=== PATIENT | female | born 1930 | race Caucasian/White ===

== ENCOUNTER → 2017-07-15 | Outpatient (CLI) | payer OTHER | LOC: FIMAGING 14:50 | PROVIDERS: ATTEND Nurse Practitioner Adult Health | DX: R10.9 Unspecified abdominal pain (principal) ==

== ENCOUNTER → 2017-08-22 | Outpatient (CLI) | payer OTHER | LOC: BMCIMAGING 13:27 | PROVIDERS: ATTEND Family Medicine | DX: R05 Cough (principal) ==

== ENCOUNTER → 2017-09-02 | Outpatient (CLI) | payer OTHER | LOC: BMCIMAGING 14:05 | PROVIDERS: ATTEND Internal Medicine | DX: R50.9 Fever, unspecified (principal); J84.10 Pulmonary fibrosis, unspecified; R91.8 Other nonspecific abnormal finding of lung field ==

== ENCOUNTER 2017-09-05 18:23 | Inpatient (IN) | payer OTHER ==
--- NOTE | 2017-09-05 18:47 | EDPHY ---
H & P Time Seen by Provider: 09/05/17 18:28 HPI/ROS: CHIEF COMPLAINT: Chills, fever, weakness HISTORY OF PRESENT ILLNESS: 86 year old female with history of pulmonary fibrosis presents with cough, weakness, and chills. Onset of fatigue, chills, and nausea 2 weeks ago, followed by a productive cough. Associated with shortness of breath with exertion, reduced appetite, and decreased fluid intake. She saw her primary care physician, Dr. Guzman. Flu swab was negative. Chest x-ray 09/02/17 showed possible right lower lobe pneumonia. Rx for Levaquin, and has taken three doses. Today, she presents due to extreme fatigue and weakness and out of concern that she feels she is getting worse rather than better. She has not noted a measured fever, but has felt febrile. She has not been able to sleep well due to cough. She denies chest pain, abdominal pain, vomiting, diarrhea, urinary complaints, or other associated symptoms. REVIEW OF SYSTEMS: A 10 point review of systems was performed and is negative with the exception of the elements mentioned in the history of present illness. Past Medical/Surgical History: Pulmonary fibrosis Hypertension Hyperlipidemia Colitis Social History: , at bedside. Lives in [place]. Retired. Former smoker. Smoking Status: Former smoker Physical Exam: General Appearance: Alert, pleasant, nontoxic appearing Eyes: Pupils equal and round, no conjunctival pallor or injection ENT, Mouth: Mucous membranes moist Neck: Normal inspection Respiratory: scattered right sided rales Cardiovascular: Regular rate and rhythm Gastrointestinal: Abdomen is soft and non-tender Neurological: A&O, nonfocal exam Skin: Warm and dry Extremities: normal inspection Psychiatric: Mood and affect normal Constitutional: Initial Vital Signs Temperature (C) 36.6 C 09/05/17 18:25 Heart Rate 85 09/05/17 18:25 Respiratory Rate 18 09/05/17 18:25 Blood Pressure 98/71 L 09/05/17 18:25 O2 Sat (%) 94 09/05/17 18:25 O2 Delivery Mode Room Air Allergies/Adverse Reactions: narcotic pain meds Allergy (Mild, Uncoded 09/05/17 18:37) GI upset, cloudy head Home Medications: Medication Instructions Recorded Hydrochlorothiazide [HCTZ (*)] 25 mg PO DAILY 12/09/13 Losartan Potassium [Cozaar 50 mg 50 mg PO BID 12/09/13 (*)] Aspirin [Aspirin 325 mg (*)] 325 mg PO DAILY 03/09/14 Nebivolol HCl [Bystolic] 2.5 mg PO HS 03/09/14 C/E/Zn/Cu/OM3/DHA/EPA/LUT/ZEAX 1 each PO DAILY 09/05/17 [Preservision Areds 2 Softgel] Herbals/Supplements -Info Only 1 ea PO DAILY 09/05/17 Oxymetazoline HCl [Afrin Nasal 1 spray EACHNARE BID PRN 09/05/17 [place] (OTC)] levOFLOXACIN [levAQUIN (*)] 500 mg PO DAILY 09/05/17 Medical Decision Making - Diagnostics Imaging Results: Chest X-Ray 09/05/17 18:47 Impression: 1. Improving small right pleural effusion 2. Stable interstitial lung disease since August 22, new since February 2008. This could potentially represent evidence of viral pneumonitis rather than chronic interstitial lung disease. Imaging: I viewed and interpreted images myself ED Course/Re-evaluation: 86 y/o female presents with 2.5 week history of fatigue, chills, and cough. Occasional right expiratory rales on exam. Chest x-ray ordered by Dr. Guzman 09/02 showed possible right lower lobe pneumonia. labs: hyponatremia present. Plan for repeat chest x-ray, labs including CBC, chemistries, lactic acid, respiratory path PCR. Does not meet SIRS criteria. Discussed admission for further management of symptoms as she feels too weak to go home. CXR reviewed: no definite pneumonia. Bld cx's drawn, pt already took Levaquin in past 24hrs, will hold further abx for now. Sx c/w influenza, prior testing negative, resp PCR pending. Hyponatremia noted, IVF given for dehydration, hyponatremia/dehydration likely reason for weakness. 20:[address] Wall, hospitalist. Will admit medsurg. Differential Diagnosis: Differential diagnosis includes though not limited to hyponatremia, hypoglycemia , dehydration, influenza, pneumonia, pulm edema, empyema. - Data Points Laboratory Results: Laboratory Results 09/05/17 19:15 09/05/17 19:15 Microbiology Results: MICROBIOLOGY 09/05/17 19:40 Nasal, Sinus - Swab Respiratory Panel (PCR) - Final Respiratory Syncytial Virus Medications Given: Benzonatate (Tessalon Pearles) 100 mg PO TID PRN PRN Reason: Cough, Mild Stop: 03/04/18 21:54 Last Admin: 09/05/17 23:56 Dose: 100 mg Enoxaparin Sodium (Lovenox) 40 mg SC DAILY IRIS Stop: 03/05/18 08:59 Last Admin: 09/06/17 09:15 Dose: 40 mg Fluticasone Propionate (Flonase Nasal [place]) 2 sprays EACHNARE DAILY IRIS Stop: 03/04/18 21:59 Last Admin: 09/06/17 09:18 Dose: 2 spray Guaifenesin (Mucinex) 1,200 mg PO BID IRIS Stop: 03/05/18 08:59 Last Admin: 09/06/17 09:15 Dose: 1,200 mg Discontinued Medications Sodium Chloride (Ns) 1,000 mls @ 0 mls/hr IV ONCE ONE; Wide Open PRN Reason: Protocol Stop: 09/05/17 19:12 Last Admin: 09/05/17 19:32 Dose: 1,000 mls Dextrose (D5w) 250 mls @ 250 mls/hr IV ONCE ONE PRN Reason: Protocol Stop: 09/05/17 23:38 Last Admin: 09/05/17 23:57 Dose: 250 mls Dextrose (D5w) 250 mls @ 250 mls/hr IV ONCE ONE Stop: 09/06/17 04:14 Last Admin: 09/06/17 03:36 Dose: 250 mls Departure - Departure Disposition: [facility] Inpatient Acute Clinical Impression: Pneumonitis, Hyponatremia Condition: Fair Report Scribed for: Eve Corcoran Report Scribed by: Lesly Gill Date of Report: 09/05/17 Time of Report: 18:46 Physician Review and Approval Statement: 09/05/17 18:46 Portions of this note were transcribed by a medical typist. I personally performed a history, physical exam, medical decision making, and confirmed accuracy of information the transcribed note.
[2017-09-05] MEDS ORDERED: NS 1,000 ML IV ONE (19:11)
[2017-09-05 19:28] LABS: PLATELET COUNT 268 10^3/uL (150-400)
[2017-09-05] MEDS ORDERED: ONDANSETRON 4 MG/2 ML VIAL IVP PRN (21:47)
[2017-09-05] MEDS ORDERED: ACETAMINOPHEN 325 MG TAB PO PRN (21:47)
[2017-09-05] MEDS ORDERED: ONDANSETRON DISINTEGRATING 4 MG TAB PO PRN (21:47)
--- NOTE | 2017-09-05 22:16 | PDGENHP ---
History and Physical - Chief Complaint weakness, chills - History of Present Illness 86 yo female presents to ED with 2 1/2 weeks of weakness, fatigue, nausea and recurrent chills. Subjective fevers have improved, but she continues to have marked chills and rigors. She was treated for possible pneumonia and sinusitis with Levaquin, started 3 days ago. She continues to have a wet cough. She had a negative flu test 2 weeks ago at her PCP office. She reports decreased oral intake. Over the past few days, she has become so weak that she feels unsteady on her feet. She denies CP, SOB, abdominal pain, N/V or diarrhea. In the ED, her serum sodium was 122. She received 1 L NS in the ED and is admitted for further management. History Information - Allergies/Home Medication List Allergies/Adverse Reactions: narcotic pain meds Allergy (Mild, Uncoded 09/05/17 18:37) GI upset, cloudy head Home Medications: Hydrochlorothiazide [HCTZ (*)] 25 mg PO DAILY 12/09/13 [Last Taken 09/05/17] Losartan Potassium [Cozaar 50 mg (*)] 50 mg PO BID 12/09/13 [Last Taken 20:00] Aspirin [Aspirin 325 mg (*)] 325 mg PO DAILY 03/09/14 [Last Taken 09/05/17] Nebivolol HCl [Bystolic] 2.5 mg PO HS 03/09/14 [Last Taken 09/05/17] C/E/Zn/Cu/OM3/DHA/EPA/LUT/ZEAX [Preservision Areds 2 Softgel] 1 each PO DAILY [Last Taken 09/05/17] Herbals/Supplements -Info Only 1 ea PO DAILY 09/05/17 [Last Taken Unknown] Oxymetazoline HCl [Afrin Nasal [place] (OTC)] 1 spray EACHNARE BID PRN 09/05/17 [ Last Taken Unknown] levOFLOXACIN [levAQUIN (*)] 500 mg PO DAILY 09/05/17 [Last Taken 09/05/17 3/7] I have personally reviewed and updated: family history, medical history, social history, surgical history - Past Medical History hypertension, hyperlipidemia Additional medical history: h/o colitis. pulmonary fibrosis - Surgical History Reports: no pertinent surgical hx - Family History Positive for: non-pertinent - Social History Smoking Status: Former smoker Alcohol Use: None Drug Use: None Additional social history: , lives independently with Review of Systems Review of Systems: ROS: 10pt was reviewed & negative except for what was stated in HPI & below Physical Exam Physical Exam: Temp Pulse Resp BP Pulse Ox 36.6 C 78 18 127/82 H 93 09/05/17 18:25 09/05/17 20:27 09/05/17 20:27 09/05/17 20:27 09/05/17 20:27 Constitutional: no apparent distress Eyes: PERRL Ears, Nose, Mouth, Throat: moist mucous membranes Cardiovascular: regular rate and rhythym, no murmur, rub, or gallop Respiratory: no respiratory distress, clear to auscultation Gastrointestinal: normoactive bowel sounds, soft, non-tender abdomen Skin: warm Musculoskeletal: full muscle strength Neurologic: AAOx3 Psychiatric: interacting appropriately Lab Data & Imaging Review 09/05/17 19:15 09/05/17 21:30 WBC 8.46 10^3/uL (3.80-9.50) 09/05/17 19:15 RBC 4.69 10^6/uL (4.18-5.33) 09/05/17 19:15 Hgb 13.8 g/dL (12.6-16.3) 09/05/17 19:15 Hct 38.9 % (38.0-47.0) 09/05/17 19:15 MCV 82.9 fL (81.5-99.8) 09/05/17 19:15 MCH 29.4 pg (27.9-34.1) 09/05/17 19:15 MCHC 35.5 g/dL (32.4-36.7) 09/05/17 19:15 RDW 13.8 % (11.5-15.2) 09/05/17 19:15 Plt Count 268 10^3/uL (150-400) 09/05/17 19:15 MPV 8.5 fL (8.7-11.7) L 09/05/17 19:15 Neut % (Auto) 71.6 % (39.3-74.2) 09/05/17 19:15 Lymph % (Auto) 11.5 % (15.0-45.0) L 09/05/17 19:15 [place] % (Auto) 10.8 % (4.5-13.0) 09/05/17 19:15 Eos % (Auto) 4.0 % (0.6-7.6) 09/05/17 19:15 Baso % (Auto) 1.3 % (0.3-1.7) 09/05/17 19:15 Nucleat RBC Rel Count 0.0 % (0.0-0.2) 09/05/17 19:15 Absolute Neuts (auto) 6.06 10^3/uL (1.70-6.50) 09/05/17 19:15 Absolute Lymphs (auto) 0.97 10^3/uL (1.00-3.00) L 09/05/17 19:15 Absolute Monos (auto) 0.91 10^3/uL (0.30-0.80) H 09/05/17 19:15 Absolute Eos (auto) 0.34 10^3/uL (0.03-0.40) 09/05/17 19:15 Absolute Basos (auto) 0.11 10^3/uL (0.02-0.10) H 09/05/17 19:15 Absolute Nucleated RBC 0.00 10^3/uL (0-0.01) 09/05/17 19:15 Immature Gran % 0.8 % (0.0-1.1) 09/05/17 19:15 Immature Gran # 0.07 10^3/uL (0.00-0.10) 09/05/17 19:15 VBG Lactic Acid 1.2 mmol/L (0.7-2.1) 09/05/17 19:15 Sodium REJ 09/05/17 20:30 Potassium 3.6 mEq/L (3.5-5.2) 09/05/17 19:15 Chloride 90 mEq/L (97-110) L 09/05/17 19:15 Carbon Dioxide 20 mEq/l (22-31) L 09/05/17 19:15 Anion Gap 12 mEq/L (8-16) 09/05/17 19:15 BUN 10 mg/dL (7-23) 09/05/17 19:15 Creatinine 0.7 mg/dL (0.6-1.0) 09/05/17 19:15 Estimated GFR > 60 09/05/17 19:15 Glucose 96 mg/dL (70-100) 09/05/17 19:15 Calcium 8.3 mg/dL (8.5-10.4) L 09/05/17 19:15 Procalcitonin 0.08 ng/mL (0.02-0.10) 09/05/17 20:30 Visualized and Interpreted Chest x-ray results: Yes Chest X-Ray results: other (diffuse hazy interstitial markings) Assessment & Plan Assessment: Weakness and chills - query viral etiology, respiratory pathogen panel pending. BCx's pending. Hyponatremia likely playing some role in weakness. PCT negative so doubt bacterial infection. Will stop atbx and observe. PT/OT evals requested. Hyponatremia - suspect hypovolemic hyponatremia. S/P 1 L NS in ED. Recheck Na now- 125 from 122. Correcting a bit too rapidly after NS bolus in ED. Will give 250 cc's D5W now and follow q4h Na. Send urine Na and osm for further evaluation. Hold HCTZ. Hypertension - on 3 agents at home though SBP 90's on arrival and appears volume depleted. Hold anti-hypertensives for now, resume as clinically indicated and when med rec completed. Full code Dispo - inpt, anticipate >48 hrs hospitalization for ongoing management of hyponatremia and associated weakness.
[2017-09-05] MEDS ORDERED: D5W 250 ML IV ONE (22:39)
[2017-09-05] MEDS: BENZONATATE 100 MG CAP PO PRN (23:56)
[2017-09-06] MEDS: FLUTICASONE NASAL 120 SPRAYS/16 GM MDI EACHNARE SCH ×2 (01:08→09:18)
--- NOTE | 2017-09-06 02:50 | PDMN ---
Medical Necessity Medical necessity: C/M review: est. > 2 MN LOS for eval and TX of acute and persistent hyponatremia, generalized weakness, chills, query viral etiology requiring IV fluids in ED, ongoing pulse oximetry, supplemental O2, acute inpt PT/OT, comorbid hypertension, hyperlipidemia, history of colitis, pulmonary fibrosis per H/P.
[2017-09-06] MEDS ORDERED: ALBUTEROL 60 PUFFS/8 GM MDI IH PRN (02:57)
[2017-09-06] MEDS ORDERED: D5W 250 ML IV ONE (03:15)
[2017-09-06] MEDS: guaiFENesin 600 MG TAB.ER PO SCH ×2 (09:15→21:12)
[2017-09-06] MEDS: ENOXAPARIN 40 MG/0.4 ML SYR SC SCH (09:15)
[2017-09-06] MEDS ORDERED: OXYMETAZOLINE 30 ML NASAL SPRAY EACHNARE PRN (15:13)
[2017-09-06] MEDS ORDERED: methylPREDNISolone SOD SUCC 125 MG/2 ML VIAL IVP ONE (15:14)
--- NOTE | 2017-09-06 15:20 | HOSPPROG ---
Hospitalist Progress Note Assessment/Plan: First encounter #RSV viral bronchitis -start steroids -cont nebs -Dain Hernández #acute resp failure due to RSV viral bronchitis #Hyponatremia due to volume depletion, Camilo with appropriate Na retention -improving s/p 1 liter NS in the E.D. -further hydration via IVF is limited by increasing Na in setting of hyponatremia -cont to encourage po, she is no longer having difficulty with this -Na has incrased from 122 - 129 and has stayed at 129. Repeat Na this afternoon. Pending Na, may need additional intervention #Nausea, improving #HTN, restart BB. Hold other BP meds #Weakness and Deconditioning -PT/OT #Lovenox for DVT proph Dispo: continue inpatient Subjective: feels better. Still with lots of cough. Still on supplemental O2. no fever. +RSV Objective: Vital Signs Temp Pulse Resp BP Pulse Ox 37.1 C 74 14 123/72 H 97 09/06/17 12:00 09/06/17 12:00 09/06/17 12:00 09/06/17 12:00 09/06/17 12:00 Laboratory Results 09/06/17 11:42 09/05/17 09/06/17 09/07/17 05:59 05:59 05:59 Intake Total 1999 Output Total 1575 Balance 425 - Physical Exam Constitutional: no apparent distress Eyes: PERRL, EOMI Ears, Nose, Mouth, Throat: moist mucous membranes Cardiovascular: regular rate and rhythym, No edema Respiratory: reduced air movement, expiratory wheeze, rhonchi Gastrointestinal: normoactive bowel sounds Skin: warm Musculoskeletal: generalized weakness Neurologic: AAOx3 Psychiatric: interacting appropriately, not anxious, not encephalopathic Lymph, Heme, Immunologic: No petechiae ICD10 Worksheet Patient Problems: Problems Problem Status Onset Hyponatremia Acute Pneumonitis Acute Osteoarthritis of left knee Acute
[2017-09-06] MEDS ORDERED: NON-FORMULARY NEW DRUG (Nebivolol Hcl [Bystolic] 2.5 MG) PO SCH (21:00)
[2017-09-06] MEDS: BENZONATATE 100 MG CAP PO PRN (21:12)
[2017-09-06] MEDS: NEBIVOLOL HCL 5 MG TAB PO SCH (21:12)
[2017-09-07] MEDS: BENZONATATE 100 MG CAP PO PRN ×2 (05:18→21:19)
[2017-09-07 05:32] LABS: PLATELET COUNT 227 10^3/uL (150-400)
[2017-09-07] MEDS ORDERED: Herbals/Supplements -Info Only PO SCH (09:00)
[2017-09-07] MEDS: predniSONE 20 MG TAB PO SCH (09:35)
[2017-09-07] MEDS: guaiFENesin 600 MG TAB.ER PO SCH ×2 (09:35→21:19)
[2017-09-07] MEDS: PRESERVISION AREDS2 FORMULA EYE VIT 1 EACH PO SCH (09:35)
[2017-09-07] MEDS: ASPIRIN 325 MG TAB PO SCH (09:35)
[2017-09-07] MEDS: ENOXAPARIN 40 MG/0.4 ML SYR SC SCH (09:36)
[2017-09-07] MEDS: FLUTICASONE NASAL 120 SPRAYS/16 GM MDI EACHNARE SCH (10:08)
--- NOTE | 2017-09-07 12:27 | ASMTCASEMG ---
Living Arrangements What is your living Answers: With Spouse arrangement? Who do you live with? Type Of Residence What kind of residence do Answers: House you live in? Discharge Plan Comments Coordination Status Comments Notes: Pt is a 86 y/o female admitted for pneumonitis and hyponatremia. OT is recommending home independent. PT is recommending HC. CM met w/ pt for dispo planning. Pt is agreeable to having HC at time of d/c. Pt would like to use [facility]. Referral made to [facility], [facility] is able to accept pt for start of date on , 09/09/17. Pts biggest concern is that she doesn't have the hospital contagious. CM spoke w/ ABBY Castle regarding d/c POC. CM available for changes. Plan: ABBY CUADRA and PT Date Signed: 09/07/2017 12:27 PM Electronically Signed By:OSMIN Roberto
--- NOTE | 2017-09-07 19:18 | HOSPPROG ---
Hospitalist Progress Note Assessment/Plan: DIAGNOSES: #RSV viral bronchitis -continue steroids -cont nebs -Tesmanuel Pearkaran #acute resp failure due to RSV viral bronchitis #Hyponatremia due to volume depletion, Camilo with appropriate Na retention -improving but remains low #Nausea, improving #HTN, restart BB. Hold other BP meds #Weakness and Deconditioning -PT/OT #Lovenox for DVT proph PLANS: -add Ensure at this time -continue PT and OT, up in chair as much as able -recheck sodium in the morning -plan return home when she is clearly more stable on feet and sodium is slightly better -will need to taper her down from prednisone SUBJECTIVE: Overall feels better but still with significant cough and some mild dyspnea Appetite remains poor but is taking in food and fluid OBJECTIVE Vitals reviewed: Stable without fever Exam: alert oriented skin warm dry color ok resps not labored lungs clear BSs heart regular abd soft nondistended nontender, bowel sounds present limbs warm, no edema iv site ok Laboratory data: Sodium at 1:30 a.m. minimally improved from yesterday Glucose slightly high probably due to steroids CBC stable Microbiology data: Blood cultures remain negative to date still pending Objective: Vital Signs Temp Pulse Resp BP Pulse Ox 36.8 C 67 16 124/69 H 95 09/07/17 16:00 09/07/17 16:00 09/07/17 16:00 09/07/17 16:00 09/07/17 16:00 Laboratory Results 09/07/17 05:18 09/07/17 05:18 09/06/17 09/07/17 09/08/17 06:59 06:59 06:59 Intake Total 1999 250 975 Output Total 6135 1500 Balance 425 -1250 975 ICD10 Worksheet Patient Problems: Problems Problem Status Onset Hyponatremia Acute Pneumonitis Acute Osteoarthritis of left knee Acute
[2017-09-07] MEDS: NEBIVOLOL HCL 5 MG TAB PO SCH (21:17)
[2017-09-08] MEDS: PRESERVISION AREDS2 FORMULA EYE VIT 1 EACH PO SCH (09:32)
[2017-09-08] MEDS: predniSONE 20 MG TAB PO SCH (09:32)
[2017-09-08] MEDS: guaiFENesin 600 MG TAB.ER PO SCH ×2 (09:32→20:54)
[2017-09-08] MEDS: FLUTICASONE NASAL 120 SPRAYS/16 GM MDI EACHNARE SCH (09:33)
[2017-09-08] MEDS: ASPIRIN 325 MG TAB PO SCH (09:33)
[2017-09-08] MEDS: ENOXAPARIN 40 MG/0.4 ML SYR SC SCH (09:33)
--- NOTE | 2017-09-08 10:56 | HOSPPROG ---
Hospitalist Progress Note Assessment/Plan: DIAGNOSES: #RSV viral bronchitis -*new finding of significant rales at right lung base with increasing cough and productivity of cough, question if developing secondary bacterial pneumonia at this time -continue steroids -cont nebs -Tessalon Pearles #acute resp failure due to RSV viral bronchitis #Hyponatremia due to volume depletion, Camilo with appropriate Na retention -improving but remains low #Nausea, improving #HTN, restart BB. Hold other BP meds #Weakness and Deconditioning -PT/OT #Lovenox for DVT proph PLANS: -chest x-ray and repeat procalcitonin as she is having worsening cough with new finding of rales on lung exam -continue Ensure at this time -continue PT and OT, up in chair as much as able -recheck sodium in the morning -will need to taper her down from prednisone SUBJECTIVE: Much worse cough last night despite Tessalon Perles Eating better today Has not tried ambulate yet OBJECTIVE Vitals reviewed: Stable without fever Exam: alert oriented skin warm dry color ok resps not labored lungs now with significant rales at right lung base heart regular abd soft nondistended nontender, bowel sounds present limbs warm, no edema iv site ok Laboratory data: Sodium at 131 minimally improved from yesterday Glucose slightly high probably due to steroids Microbiology data: Blood cultures remain negative to date still pending Objective: Vital Signs Temp Pulse Resp BP Pulse Ox 36.8 C 63 16 129/75 H 98 09/08/17 10:43 09/08/17 10:43 09/08/17 10:43 09/08/17 10:43 09/08/17 10:43 Laboratory Results 09/07/17 05:18 09/08/17 04:41 09/07/17 09/08/17 09/09/17 06:59 06:59 06:59 Intake Total 250 1350 Output Total 1500 Balance -1250 1350 - Time Spent With Patient Time Spent with Patient: greater than 35 minutes Time Spent with Patient: Greater than 35 minutes spent on this patients care, greater than 50% of time spent counseling, educating, and coordinating care regarding the above mentioned plan. ICD10 Worksheet Patient Problems: Problems Problem Status Onset Hyponatremia Acute Pneumonitis Acute Osteoarthritis of left knee Acute
[2017-09-08] MEDS: BENZONATATE 100 MG CAP PO PRN ×2 (17:52→20:54)
[2017-09-08] MEDS: NEBIVOLOL HCL 5 MG TAB PO SCH (20:56)
[2017-09-09] MEDS ORDERED: BENZONATATE 100 MG CAP PO PRN (05:30)
[2017-09-09 07:27] VITALS: RESP 16; TEMP 98.3
[2017-09-09] MEDS: predniSONE 20 MG TAB PO SCH (08:28)
[2017-09-09] MEDS: PRESERVISION AREDS2 FORMULA EYE VIT 1 EACH PO SCH (08:28)
[2017-09-09] MEDS: ASPIRIN 325 MG TAB PO SCH (08:28)
[2017-09-09] MEDS: guaiFENesin 600 MG TAB.ER PO SCH (08:29)
[2017-09-09] MEDS: ENOXAPARIN 40 MG/0.4 ML SYR SC SCH (08:30)
[2017-09-09] MEDS: FLUTICASONE NASAL 120 SPRAYS/16 GM MDI EACHNARE SCH (08:31)
[2017-09-09 11:01] VITALS: BP 118/60; PULSE 69; O2SAT 92
--- NOTE | 2017-09-09 12:43 | PDDCSUM ---
Discharge Summary Discharge Summary: DISCHARGE DIAGNOSES: #RSV viral bronchitis #acute resp failure due to RSV viral bronchitis #Hyponatremia due to volume depletion with nausea vomiting, poor oral intake and use of diuretic #Nausea due to viral infection, resolved #chronic HTN #Weakness and Deconditioning HOSPITAL COURSE SUMMARY: This patient has had acute upper respiratory infection symptoms with nausea and vomiting since the beginning of August. She has become severely weak and and upon presentation to the hospital here has a sodium 122. She was dehydrated and had been vomiting with poor oral intake and takes hydrochlorothiazide chronically for blood pressure. She was short of breath and hypoxemic on presentation. Respiratory panel here showed respiratory syncytial virus as a cause of her infection. There is no evidence of bacterial infection on cultures and no typical pulmonary infiltrate of bacterial infection. Procalcitonin was normal The patient was admitted the hospital treated with IV hydration, nutritional supplements and antiemetics, oxygen, bronchodilators and prednisone. Her losartan and hydrochlorothiazide were held here in the hospital. The patient had a slow course but did improve significantly. By now she is up ambulating in the hallway without difficulty, eating reasonably well, keeping herself hydrated orally, and has her sodium back up to 133. She has much less dyspnea and is not requiring any oxygen for ambulation. There been no particular complications. She is stable for discharge to home right now At this point as her blood pressures are in the normal range is commended she continue to hold her losartan and hydrochlorothiazide. She will follow her blood pressures and as the blood pressures rise again she will resume her losartan. I have asked her to visit her primary care physician Dr. Guzman for recheck and have her sodium rechecked. I would not restart the hydrochlorothiazide until her intake of food and fluids back to normal and sodium is shown to be stable on repeat study. PENDING TEST RESULTS: None MEDICATION CHANGES: Losartan hydrochlorothiazide are held, with the losartan to resume as her blood pressures start to become high again and hydrochlorothiazide to resume after her oral intake of food and fluids back to normal with stable sodium demonstrated Prednisone will continue on a tapering dose with 3 days of 20 mg and 3 days of 10 mg Mucinex and Tessalon Perles are prescribed for symptom treatment Nasal spray decongestant is discontinued at this time FOLLOW-UP PLAN: Her primary care physician Dr. Guzman in 6 days Greater than 35 minutes bedside and care coordination time today
--- NOTE | 2017-09-09 15:52 | ASDISCHSUM ---
Discharge Information Plan Status:Home with No Needs Medically Cleared to Leave:09/08/2017 Discharge Date:09/09/2017 03:04 PM D/C Disposition: ADT D/C Disposition:Home, Routine, Self-Care Projected Discharge Date:09/09/2017 11:00 AM Transportation at D/C: Discharge Delay Reason: Follow-Up Date:09/09/2017 11:00 AM Discharge Slot: Final Diagnosis: Placement Information Referral Type:*Home Health Care Services Referral ID:[id number] Provider Name: Address 1: Phone Number: Address 2: Fax Number: City: Selection Factors: State: Patient Contact Information Contact Name:BRENT Relationship: Address:[address] City:[facility] Phone: State/Zip Code:[place] [address] Email: Financial Information Financial Class: Primary Plan Desc:MEDICARE INPATIENT Primary Plan Number:[id number] Secondary Plan Desc:RAIN PPO Secondary Plan Number:[id number] Assessment Information [facility] Initial CM Assessment Living Arrangements What is your living Answers: With Spouse arrangement? Who do you live with? Type Of Residence What kind of residence do Answers: House you live in? Discharge Plan Comments Coordination Status Comments Notes: Pt is a 86 y/o female admitted for pneumonitis and hyponatremia. OT is recommending home independent. PT is recommending HC. CM met w/ pt for dispo planning. Pt is agreeable to having HC at time of d/c. Pt would like to use [facility]. Referral made to [facility], JACLYN is able to accept pt for start of date on , 09/09/17. Pts biggest concern is that she doesn't have the hospital contagious. CM spoke w/ ABBY Castle regarding d/c POC. CM available for changes. Plan: ABBY CUADRA and PT Date Signed: 09/07/2017 12:27 PM Electronically Signed By:OSMIN Roberto Case Management Discharge Plan Note Case Management Discharge Discharge Order Complete? Answers: Yes Patient to Obtain Answers: via Family Medications Transportation Arranged Answers: Family/Friends EMTALA Complete Answers: No Case Management Transport Answers: No Form Complete Faxed Final Orders Answers: No Agency/Facility Transfer Answers: No Report Printed & Faxed to Receiving Agency Family Notified Answers: Yes Discharge Comments Notes: CM met w/ pts for dispo planning. Pt is being discharged today. Pt will discharge independent without any needs. CM notified [facility] that pt will no longer have a need. CM available for changes. Plan: Independent Date Signed: 09/09/2017 03:50 PM Electronically Signed By:OSMIN Roberto Intervention Information Intervention Type:*IM-Signed Date of Service:09/09/2017 02:29 PM Patient Type:Inpatient Staff Member:Melinda Mares Hours: Discipline: Severity: Comment:
== END 2017-09-09 15:04 | disposition home or self-care (01) | DRG 640 ==
LOC: F3E 21:33
PROVIDERS: ADMIT Hospitalist; ATTEND Hospitalist
DX: E87.1 Hypo-osmolality and hyponatremia (principal); J96.00 Acute respiratory failure, unspecified whether with hypoxia or hypercapnia; J20.5 Acute bronchitis due to respiratory syncytial virus; I10 Essential (primary) hypertension; E86.0 Dehydration; E78.5 Hyperlipidemia, unspecified; Z87.891 Personal history of nicotine dependence
CPT/HCPCS: 97116-GP; 97162-GP; 97165-GO; 97535-GO; G8978-GP-CJ; G8979-GP-CI; G8987-GO-CJ; G8988-GO-CI; J1650; J2930; J7512

== ENCOUNTER → 2017-09-17 | Outpatient (CLI) | payer OTHER | LOC: BMCIMAGING 12:30 | PROVIDERS: ATTEND Internal Medicine | DX: J84.10 Pulmonary fibrosis, unspecified (principal) ==

== ENCOUNTER → 2017-09-25 | Outpatient (CLI) | payer OTHER | LOC: FIMAGING 11:21 | PROVIDERS: ATTEND Internal Medicine | DX: J84.9 Interstitial pulmonary disease, unspecified (principal) ==

== ENCOUNTER 2017-10-12 16:59 | Emergency (ER) | payer OTHER ==
[2017-10-12 17:30] VITALS: TEMP 98.2
--- NOTE | 2017-10-12 18:56 | EDPHY ---
H & P Smoking Status: Former smoker Time Seen by Provider: 10/12/17 18:30 HPI/ROS: CHIEF COMPLAINT: Dyspnea HISTORY OF PRESENT ILLNESS: 86-year-old female presents to the emergency department with dyspnea. Patient has a known history of sarcoidosis. She has been seen by her primary care provider for this within the last few weeks. She states especially over last 2 weeks she feels like she is being"strangled". She feels like she cannot take a full breath of air. She has some pressure sensation in her chest. She denies abdominal pain or vomiting. Denies headache. Denies neck or back pain. She does not feel dizzy. She saw her primary care provider 2 weeks ago and had a chest x-ray obtained and ultimately had a noncontrast CT scan of her chest which revealed diffuse interstitial changes consistent with her history of sarcoidosis. There is no evidence of consolidation or pneumonia. No evidence of pneumothorax. Patient has been sneezing and has an occasional cough. She has mild rhinorrhea. No fevers or chills. No other reported trauma. She is sleeping propped up on several pillows at night specially over the last 1 week. REVIEW OF SYSTEMS: Constitutional: No fever, no chills. Eyes: No double or blurry vision. ENT: No sore throat. Respiratory: Shortness of breath as above. Cardiac: Chest pressure. Gastrointestinal: No abdominal pain, vomiting or diarrhea. Genitourinary: No dysuria. Musculoskeletal: No neck or back pain. Skin: No rashes. Neurological: No headache. (Lucero De Paz) Past Medical/Surgical History: Hypertension, scoliosis, interstitial lung disease, colitis, pneumonia August 2017 (Lucero De Paz M) Social History: and lives in [facility] (Lucero De Paz M) Physical Exam: General Appearance: Alert, no distress. Vital signs upon my examination heart rate 71, blood pressure 160/89, 92% on room air. at bedside. Eyes: Pupils equal and round. Extraocular motions are all intact. ENT: Mouth: Mucous membranes moist. Respiratory: No wheezing, rhonchi, or rales, lungs are clear to auscultation. No respiratory distress. Speaking in full sentences. Cardiovascular: Regular rate and rhythm. Gastrointestinal: Abdomen is soft and nontender, no masses, no rebound or guarding, bowel sounds normal. Neurological: Alert and oriented x 3, cranial nerves II through XII grossly intact Skin: Warm and dry, no rashes. Musculoskeletal: Nontender to palpate along the cervical, thoracic or lumbar spine. Neck is supple. Extremities: Full range of motion and no peripheral edema. Psychiatric: Patient is oriented X 3, there is no agitation. (ZandraLucero) Constitutional: Initial Vital Signs Temperature (C) 36.8 C 10/12/17 17:26 Heart Rate 84 10/12/17 17: Respiratory Rate 24 H 10/12/17 17:26 Blood Pressure 180/118 H 10/12/17 17:26 O2 Sat (%) 92 10/12/17 17:26 O2 Delivery Mode Room Air O2 (L/minute) 2 Allergies/Adverse Reactions: narcotic pain meds Allergy (Mild, Uncoded 10/12/17 17:24) GI upset, cloudy head Home Medications: Medication Instructions Recorded Losartan Potassium [Cozaar 50 mg 50 mg PO BID 12/09/13 (*)] Aspirin [Aspirin 325 mg (*)] 325 mg PO DAILY 03/09/14 Nebivolol HCl [Bystolic] 2.5 mg PO HS 03/09/14 C/E/Zn/Cu/OM3/DHA/EPA/LUT/ZEAX 1 each PO DAILY 09/05/17 [Preservision Areds 2 Softgel] Herbals/Supplements -Info Only 1 ea PO DAILY 09/05/17 Acetaminophen [Tylenol 325mg (*)] 650 mg PO Q4HRS PRN tab 09/09/17 Albuterol [Proventil Inhaler HFA 2 puffs IH Q4HRS PRN mdi 09/09/17 (*)] Benzonatate [Tessalon Pearles] 200 mg PO TID PRN #60 cap 09/09/17 Fluticasone Nasal [Flonase Nasal 2 sprays EACHNARE DAILY mdi 09/09/17 [place]] guaiFENesin [Mucinex 600 MG (*)] 1,200 mg PO BID #40 tab.er 09/09/17 Medical Decision Making - Diagnostics Imaging: Discussed imaging studies w/ inbound call center representative Radiologist - Diagnostics EKG Interpretation: EKG: Complete interpretation has been separately recorded in the [employer] archive. Summary impression: Sinus rhythm, rate 69 (Dante Freeman) Imaging Results: Imaging Impressions Chest X-Ray 10/12/17 18:53 Impression: Interval increase in interstitial thickening throughout both lungs from prior exam. Underlying emphysema.. Chest/Thorax CTA 10/12/17 19:27 Impression: 1. Negative CT examination of the chest for acute pulmonary thromboembolic disease. 2. Subpleural interstitial fibrosis throughout both lungs, similar appearance to prior examination. 3. Moderate mediastinal lymphadenopathy. Results called to Lucero Gant PA-C, at 8:30 PM. ED Course/Re-evaluation: 86-year-old female presents to the emergency department with shortness of breath. Patient had elevated D-dimer of 0.74. CT pulmonary angiogram was obtained which appeared unchanged from previous CT scan on 09/25/2017. Troponin was negative. The patient was also seen examined by Dr. Freeman, secondary supervising physician, who also evaluated the patient. The patient feels that she is having hard time breathing. She understands that her EKG in her CT scan of her chest were unremarkable she revealing chronic changes on her CT scan. I recommended close follow-up with her button inspector as well as her vault installer. I also discussed symptoms of anxiety with the patient. She states that her primary care provider has recently prescribed lorazepam for the patient. I encouraged the patient to return to the emergency department if she had any change in symptoms or felt worse. (Lucero De Paz) Differential Diagnosis: Shortness of breath including but not limited to pulmonary infectious process, COPD, asthma, pulmonary embolus and congestive heart failure. (Lucero De Paz) Other Provider: Independent physician documentation: I evaluated and participated in the management of the patient. I also evaluated the patient independently. My co-signature indicates that I have reviewed this chart and I agree with the findings and plan of care as documented. My personal H&P findings include: The patient has a history of sarcoidosis and interstitial lung disease. She presents to the emergency department at the recommendation of her primary care provider for slightly worsening dyspnea for the past several days. The patient reports that her symptoms seem to be worse at night. The patient does report that she has been followed at [facility] for her lung disease in the past. She denies any fever, cough or congestion. She denies pleuritic chest pain. She denies asymmetric calf pain or swelling. Physical exam: General Appearance: Thin elderly female, no acute distress Eyes: Pupils equal and round no pallor or injection ENT, Mouth: Mucous membranes moist Respiratory: Lungs clear to auscultation bilaterally Cardiovascular: Regular rate and rhythm Gastrointestinal: Abdomen is soft and nontender, no masses, bowel sounds normal Neurological: 5/5 strength all 4 extremities Skin: Warm and dry, no rashes Musculoskeletal: Neck is supple nontender Extremities: symmetrical, full range of motion, no asymmetric swelling or edema noted ED course: The patient's vital signs are stable in the emergency department. Her EKG demonstrates no evidence of ischemia. Her troponin and BNP are unremarkable. The patient did have a slightly elevated D-dimer. The patient did have a CT pulmonary angiogram which demonstrated no evidence of thromboembolic disease. At this point time the etiology of the patient's intermittent dyspnea is uncertain. We did discuss limitations of our testing in the emergency department. She is comfortable following up as an outpatient with her primary care provider. I will defer to her PCP for consideration of a Cardiology referral. I also feel that the patient should be followed by her vault installer at [facility]. Patient will be discharged home with customary aftercare instructions and return precautions. (Dante Freeman) - Data Points Laboratory Results: Laboratory Results 10/12/17 18:40 10/12/17 18:40 10/12/17 10/12/17 10/12/17 18:40 18:40 18:40 WBC 6.13 10^3/uL 10^3/uL (3.80-9.50) RBC 4.67 10^6/uL 10^6/uL (4.18-5.33) Hgb 13.1 g/dL g/dL (12.6-16.3) Hct 39.7 % % (38.0-47.0) MCV 85.0 fL fL (81.5-99.8) MCH 28.1 pg pg (27.9-34.1) MCHC 33.0 g/dL g/dL (32.4-36.7) RDW 16.5 % H % (11.5-15.2) Plt Count 235 10^3/uL 10^3/uL (150-400) MPV 8.4 fL L fL (8.7-11.7) Neut % (Auto) 57.3 % % (39.3-74.2) Lymph % (Auto) 24.1 % % (15.0-45.0) [place] % (Auto) 11.6 % % (4.5-13.0) Eos % (Auto) 4.6 % % (0.6-7.6) Baso % (Auto) 1.3 % % (0.3-1.7) Nucleat RBC Rel Count 0.0 % % (0.0-0.2) Absolute Neuts (auto) 3.51 10^3/uL 10^3/uL (1.70-6.50) Absolute Lymphs (auto) 1.48 10^3/uL 10^3/uL (1.00-3.00) Absolute Monos (auto) 0.71 10^3/uL 10^3/uL (0.30-0.80) Absolute Eos (auto) 0.28 10^3/uL 10^3/uL (0.03-0.40) Absolute Basos (auto) 0.08 10^3/uL 10^3/uL (0.02-0.10) Absolute Nucleated RBC 0.00 10^3/uL 10^3/uL (0-0.01) Immature Gran % 1.1 % % (0.0-1.1) Immature Gran # 0.07 10^3/uL 10^3/uL (0.00-0.10) D-Dimer 0.72 ug/mLFEU H ug/mLFEU (0.00-0.50) Sodium 129 mEq/L L mEq/L (135-145) Potassium 4.0 mEq/L mEq/L (3.5-5.2) Chloride 93 mEq/L L mEq/L (97-110) Carbon Dioxide 25 mEq/l mEq/l (22-31) Anion Gap 11 mEq/L mEq/L (8-16) BUN 15 mg/dL mg/dL (7-23) Creatinine 0.6 mg/dL mg/dL (0.6-1.0) Estimated GFR > 60 Glucose 89 mg/dL mg/dL (70-100) Calcium 9.0 mg/dL mg/dL (8.5-10.4) Troponin I < 0.012 ng/mL ng/mL (0.000-0.034) NT-Pro-B Natriuret Pep 968 pg/mL H pg/mL (0-450) Departure - Departure Disposition: Home, Routine, Self-Care Clinical Impression: Dyspnea Qualifiers: Dyspnea type: unspecified Qualified Code(s): R06.00 - Dyspnea, unspecified Condition: Good Instructions: Dyspnea (ED) Additional Instructions: Return to the emergency department if you developed worsening shortness of breath, difficulty swallowing, pain in her chest, or if you feel worse in any way. Please follow up with your primary care provider this week to recheck. You should also consider recheck with ENT. Referrals: Latoya Guzman MD [Primary Care Provider] - As per Instructions
--- NOTE | 2017-10-12 19:00 | CPEKG ---
Heart Rate: 69 RR Interval: 870 P-R Interval: 172 QRSD Interval: 74 QT Interval: 416 QTC Interval: 446 P [place]: 66 QRS [place]: 5 T Wave [place]: 42 EKG Severity - BORDERLINE ECG - EKG Impression: SINUS RHYTHM EKG Impression: PROBABLE LEFT ATRIAL ABNORMALITY Electronically Signed By: Dante Freeman 12-Oct-2017 20:18:50
[2017-10-12 19:01] LABS: PLATELET COUNT 235 10^3/uL (150-400)
[2017-10-12] MEDS ORDERED: IOPAMIDOL (ISOVUE 370) 100 ML BTL IV ONE (19:40)
[2017-10-12 20:56] VITALS: RESP 20
[2017-10-12 22:27] VITALS: BP 158/94; PULSE 63; O2SAT 93
== END 2017-10-12 22:27 | disposition home or self-care (01) ==
DX: R06.00 Dyspnea, unspecified (principal); I10 Essential (primary) hypertension; Z79.82 Long term (current) use of aspirin; Z87.891 Personal history of nicotine dependence
CPT/HCPCS: 71046; 71275; 93005; 99285; Q9967

== ENCOUNTER → 2017-10-22 | Outpatient (CLI) | payer OTHER | LOC: FIMAGING 16:16 | PROVIDERS: ATTEND Internal Medicine | DX: Z13.828 Encounter for screening for other musculoskeletal disorder (principal); M79.89 Other specified soft tissue disorders ==

== ENCOUNTER 2017-11-04 18:17 | Emergency (ER) | payer OTHER ==
[2017-11-04 18:25] VITALS: TEMP 97.5
--- NOTE | 2017-11-04 19:28 | EDPHY ---
H & P Stated Complaint: Sent here for US eval of elevated ddimer;R foot/ank swelling/ soreness~2wks Time Seen by Provider: 11/04/17 18:48 HPI/ROS: CHIEF COMPLAINT: Asymmetric leg swelling HISTORY OF PRESENT ILLNESS: The patient presents the ED for ongoing asymmetric right leg swelling. The patient reportedly was noted to have an elevated D- dimer at her primary care provider's office today. The patient has been struggling with some leg swelling for the past several weeks. She recently was taken off diuretics for hyponatremia. She reportedly resumed Lasix and then developed asymmetric edema involving the right leg. The patient denies any pleuritic chest pain or shortness of breath. She did have an ultrasound several weeks ago which demonstrated no evidence of a DVT by her report. The patient denies any fever, cough or congestion. She denies additional acute complaints. REVIEW OF SYSTEMS: A comprehensive 10 point review of systems is otherwise negative aside from elements mentioned in the history of present illness. Source: Patient Exam Limitations: No limitations - Personal History Current Tetanus Diphtheria and Acellular Pertussis (TDAP): Yes - Medical/Surgical History Hx Asthma: No Hx Chronic Respiratory Disease: Yes Hx Diabetes: No Hx Cardiac Disease: Yes Hx Renal Disease: No Hx Cirrhosis: No Hx Alcoholism: No Hx HIV/AIDS: No Hx Splenectomy or Spleen Trauma: No Other PMH: htn, hld, colititis, scoliosis, coronavirus, PNA, sinus infections, RSV - Social History Smoking Status: Former smoker - Physical Exam Exam: General Appearance: Alert, no distress Eyes: Pupils equal and round no pallor or injection ENT, Mouth: Mucous membranes moist Respiratory: There are no retractions, lungs are clear to auscultation Cardiovascular: Regular rate and rhythm Gastrointestinal: Abdomen is soft and nontender, no masses, bowel sounds normal Neurological: A&O, normal motor function, normal sensory exam, normal cranial nerves Skin: Warm and dry, no rashes Musculoskeletal: Neck is supple nontender Extremities: Asymmetric swelling noted to the right lower leg Constitutional: Initial Vital Signs Temperature (C) 36.4 C 11/04/17 18:19 Heart Rate 74 11/04/17 18:19 Respiratory Rate 18 11/04/17 18:19 Blood Pressure 156/91 H 11/04/17 18:19 O2 Sat (%) 93 11/04/17 18:19 O2 Delivery Mode Room Air Allergies/Adverse Reactions: narcotic pain meds Allergy (Mild, Uncoded 11/04/17 18:18) GI upset, cloudy head Home Medications: Medication Instructions Recorded Losartan Potassium [Cozaar 50 mg 50 mg PO BID 12/09/13 (*)] Aspirin [Aspirin 325 mg (*)] 325 mg PO DAILY 03/09/14 Nebivolol HCl [Bystolic] 2.5 mg PO HS 03/09/14 C/E/Zn/Cu/OM3/DHA/EPA/LUT/ZEAX 1 each PO DAILY 09/05/17 [Preservision Areds 2 Softgel] Herbals/Supplements -Info Only 1 ea PO DAILY 09/05/17 Acetaminophen [Tylenol 325mg (*)] 650 mg PO Q4HRS PRN tab 09/09/17 Albuterol [Proventil Inhaler HFA 2 puffs IH Q4HRS PRN mdi 09/09/17 (*)] Benzonatate [Tessalon Pearles] 200 mg PO TID PRN #60 cap 09/09/17 Fluticasone Nasal [Flonase Nasal 2 sprays EACHNARE DAILY mdi 09/09/17 [place]] guaiFENesin [Mucinex 600 MG (*)] 1,200 mg PO BID #40 tab.er 09/09/17 Medical Decision Making - Diagnostics Imaging Results: Imaging Impressions Extremity Venous Study 11/04/17 19:17 Impression: 1. No deep venous thrombosis. 2. Mitchell's cyst. Findings discussed with Emergency Department physician, Dante Freeman M.D. , on November 04, 2017 at 2111. ED Course/Re-evaluation: The patient presents the ED for evaluation of asymmetric right calf swelling. The patient was noted to have an elevated D-dimer. An ultrasound was repeated in the emergency department and demonstrates Mitchell cyst without evidence of DVT. The patient will be instructed to follow up with her primary care provider. There is no evidence of cellulitis, abscess or necrotizing fasciitis. There is no clinical evidence of arterial insufficiency. Differential Diagnosis: Differential diagnosis considered includes DVT, cellulitis, abscess, arterial insufficiency, Mitchell cyst Departure - Departure Disposition: Home, Routine, Self-Care Clinical Impression: Mitchell's cyst Qualifiers: Laterality: right Qualified Code(s): M71.21 - Synovial cyst of popliteal space [Mitchell], right knee Condition: Good Instructions: Bakers Cyst (ED) Additional Instructions: 1. You have a benign cyst behind your right knee which is likely responsible for the swelling your experiencing. 2. This is typically a self-limited condition. You can follow up with your primary care provider for any ongoing symptoms. 3. Your ultrasound and beta evidence of a blood clot. Referrals: Latoya Guzman MD [Primary Care Provider] - As per Instructions
[2017-11-04 20:44] VITALS: RESP 16
[2017-11-04 21:52] VITALS: BP 141/92; PULSE 74; O2SAT 92
== END 2017-11-04 21:51 | disposition home or self-care (01) ==
DX: M71.21 Synovial cyst of popliteal space [Baker], right knee (principal); I10 Essential (primary) hypertension; Z87.891 Personal history of nicotine dependence; Z79.82 Long term (current) use of aspirin

== ENCOUNTER → 2018-06-17 | Outpatient (CLI) | payer OTHER | LOC: FIMAGING 09:27 | DX: I10 Essential (primary) hypertension (principal) ==

== ENCOUNTER 2018-08-02 15:13 | Inpatient (IN) | payer OTHER ==
--- NOTE | 2018-08-02 15:58 | EDPHY ---
H & P Time Seen by Provider: 08/02/18 15:34 HPI/ROS: Chief complaint. Shortness of breath HPI. Patient 87-year-old female who complains of shortness of breath for 1 month. She has a history of RSV and pneumonia. She describes exertional dyspnea trying to walk around the house. Some shortness of breath at night that awakens her. Slight cough. No fever. Chest pain with cough though not in between times. She does complain of occasional pressure to the anterior chest. She has swelling in her ankles. She was diagnosis with low-sodium last week and was 123. She has been taking salt tablets twice daily for the past week. No abdominal pain. ROS 10 systems were reviewed and negative with the exception of the elements mentioned in the history of present illness Past Medical/Surgical History: Past medical history significant for hypertension, colitis, pneumonia, sinus infections, RSV, right middle lobectomy Social History: , nonsmoker, no alcohol Smoking Status: Former smoker Physical Exam: General Appearance: Alert well-developed female mild distress vital signs are stable Eyes: Pupils equal and round no pallor or injection. ENT, Mouth: Mucous membranes are moist. Respiratory: No retractions but inspiratory expiratory row also diffusely. Cardiovascular: Regular rate and rhythm. Gastrointestinal: Abdomen is soft and nontender, no masses, bowel sounds normal. Neurological: Awake and alert, sensory and motor exams grossly normal. Skin: Warm and dry, no rashes. Musculoskeletal: Neck is supple nontender. Extremities 2+ edema to ankles Psychiatric: Patient is oriented X 3, there is no agitation. Constitutional: Initial Vital Signs Temperature (C) 36.8 C 08/02/18 15:20 Heart Rate 71 08/02/18 15:20 Respiratory Rate 18 08/02/18 15:20 Blood Pressure 157/86 H 08/02/18 15:20 O2 Sat (%) 93 08/02/18 15:20 O2 Delivery Mode Room Air Allergies/Adverse Reactions: narcotic pain meds Allergy (Mild, Uncoded 11/04/17 18:18) GI upset, cloudy head Home Medications: Medication Instructions Recorded Losartan Potassium [Cozaar 50 mg 50 mg PO BID 12/09/13 (*)] Aspirin [Aspirin 325 mg (*)] 325 mg PO DAILY 03/09/14 Nebivolol HCl [Bystolic] 2.5 mg PO HS 03/09/14 C/E/Zn/Cu/OM3/DHA/EPA/LUT/ZEAX 1 each PO DAILY 09/05/17 [Preservision Areds 2 Softgel] Herbals/Supplements -Info Only 1 ea PO DAILY 09/05/17 Acetaminophen [Tylenol 325mg (*)] 650 mg PO Q4HRS PRN tab 09/09/17 Albuterol [Proventil Inhaler HFA 2 puffs IH Q4HRS PRN mdi 09/09/17 (*)] Fluticasone Nasal [Flonase Nasal 2 sprays EACHNARE DAILY mdi 09/09/17 [place]] Medical Decision Making - Diagnostics EKG Interpretation: EKG interpreted by me shows normal sinus rhythm normal interval and axis. QRS shows inverted T-waves inferiorly as well as anteriorly. No significant ST elevation or depression. No arrhythmia. The rate is 63 Imaging Results: Imaging Impressions Chest X-Ray 08/02/18 15:54 Impression: New left lower lobe and lingular infiltrate, consistent with pneumonia, superimposed upon chronic changes of sarcoid. Chest/Thorax CTA 08/02/18 16:53 Impression: 1. No evidence for pulmonary embolic disease. 2. Pulmonary interstitial findings and enlarged mediastinal adenopathy may be secondary to patient's reported sarcoidosis, however underlying malignancy cannot be radiographically excluded. Short-term follow-up CT examination is recommended to document stability/resolution. 3. Small left and minimal right pleural effusions with probable adjacent atelectasis, superimposed pneumonia cannot be radiographically excluded. Ag working with Dr. Star Morillo was notified of these findings by telephone at 5:42 PM on 08/02/2018 Chest x-ray interpreted by me shows CHF and bilateral pleural effusions Procedures: IV normal saline ED Course/Re-evaluation: Re-evaluation 5:00 p.m.. Patient is stable. She and I discussed imaging and lab results. We discussed elevated D-dimer and recommendation for CT chest. She expresses understanding and agreement Re-evaluation 6:00 p.m.. Patient and I discussed imaging lab EKG findings. We discussed treatment plan including recommendation for admission. She expresses understanding and agreement I consulted and discussed the case with Dr. Ryan, hospitalist, who agrees to the admission Differential Diagnosis: I considered acute coronary syndrome, CHF, electrolyte abnormalities including hyponatremia, pulmonary embolus - Data Points Laboratory Results: Laboratory Results 08/02/18 16:00 08/02/18 16:00 08/02/18 08/02/18 08/02/18 16:13 16:00 16:00 WBC RBC Hgb Hct MCV MCH MCHC RDW Plt Count MPV Neut % (Auto) Lymph % (Auto) [place] % (Auto) Eos % (Auto) Baso % (Auto) Nucleat RBC Rel Count Absolute Neuts (auto) Absolute Lymphs (auto) Absolute Monos (auto) Absolute Eos (auto) Absolute Basos (auto) Absolute Nucleated RBC Immature Gran % Immature Gran # D-Dimer 1.27 ug/mLFEU H ug/mLFEU (0.00-0.50) Sodium 126 mEq/L L mEq/L (135-145) Potassium 4.0 mEq/L mEq/L (3.5-5.2) Chloride 91 mEq/L L mEq/L (97-110) Carbon Dioxide 23 mEq/l mEq/l (22-31) Anion Gap 12 mEq/L mEq/L (6-14) BUN 17 mg/dL mg/dL (7-23) Creatinine 0.6 mg/dL mg/dL (0.6-1.0) Estimated GFR > 60 Glucose 92 mg/dL mg/dL (70-100) Calcium 8.7 mg/dL mg/dL (8.5-10.4) POC Troponin I 0.01 ng/mL ng/mL (0.00-0.08) NT-Pro-B Natriuret Pep 6450 pg/mL H pg/mL (0-450) 08/02/18 16:00 WBC 7.73 10^3/uL 10^3/uL (3.80-9.50) RBC 4.33 10^6/uL 10^6/uL (4.18-5.33) Hgb 12.9 g/dL g/dL (12.6-16.3) Hct 38.2 % % (38.0-47.0) MCV 88.2 fL fL (81.5-99.8) MCH 29.8 pg pg (27.9-34.1) MCHC 33.8 g/dL g/dL (32.4-36.7) RDW 15.2 % % (11.5-15.2) Plt Count 247 10^3/uL 10^3/uL (150-400) MPV 8.1 fL L fL (8.7-11.7) Neut % (Auto) 74.0 % % (39.3-74.2) Lymph % (Auto) 13.3 % L % (15.0-45.0) [place] % (Auto) 7.4 % % (4.5-13.0) Eos % (Auto) 3.6 % % (0.6-7.6) Baso % (Auto) 0.9 % % (0.3-1.7) Nucleat RBC Rel Count 0.0 % % (0.0-0.2) Absolute Neuts (auto) 5.72 10^3/uL 10^3/uL (1.70-6.50) Absolute Lymphs (auto) 1.03 10^3/uL 10^3/uL (1.00-3.00) Absolute Monos (auto) 0.57 10^3/uL 10^3/uL (0.30-0.80) Absolute Eos (auto) 0.28 10^3/uL 10^3/uL (0.03-0.40) Absolute Basos (auto) 0.07 10^3/uL 10^3/uL (0.02-0.10) Absolute Nucleated RBC 0.00 10^3/uL 10^3/uL (0-0.01) Immature Gran % 0.8 % % (0.0-1.1) Immature Gran # 0.06 10^3/uL 10^3/uL (0.00-0.10) D-Dimer Sodium Potassium Chloride Carbon Dioxide Anion Gap BUN Creatinine Estimated GFR Glucose Calcium POC Troponin I NT-Pro-B Natriuret Pep Point of Care Test Results: Chemistry 08/02/18 16:13 POC Troponin I 0.01 ng/mL ng/mL (0.00-0.08) Departure - Departure Disposition: [facility] Inpatient Acute Clinical Impression: Acute exacerbation of congestive heart failure Qualifiers: Heart failure type: combined systolic and diastolic Qualified Code(s): I50.43 - Acute on chronic combined systolic (congestive) and diastolic (congestive) heart failure Condition: Fair Referrals: Latoya Guzman MD [Primary Care Provider] - As per Instructions
[2018-08-02 16:21] LABS: PLATELET COUNT 247 10^3/uL (150-400)
--- NOTE | 2018-08-02 16:39 | CPEKG ---
Test Reason : OPEN Blood Pressure : / mmHG Vent. Rate : 063 BPM Atrial Rate : 063 BPM P-R Int : 183 ms QRS Dur : 081 ms QT Int : 414 ms P-R-T Axes : 026 028 -33 degrees QTc Int : 424 ms Sinus rhythm Atrial premature complex Low voltage, extremity and precordial leads Nonspecific T abnormalities, inferior leads Confirmed by Star Morillo ([id number]) on 08/02/2018 4:39:16 PM Referred By: Confirmed By:Star Morillo
[2018-08-02] MEDS ORDERED: IOPAMIDOL (ISOVUE 370) 100 ML BTL IV ONE (16:59)
[2018-08-02] MEDS ORDERED: ACETAMINOPHEN 325 MG TAB PO PRN (18:03)
[2018-08-02] MEDS ORDERED: ONDANSETRON 4 MG/2 ML VIAL IVP PRN (18:03)
[2018-08-02] MEDS ORDERED: ONDANSETRON DISINTEGRATING 4 MG TAB PO PRN (18:03)
--- NOTE | 2018-08-02 20:01 | PDGENHP ---
History and Physical - Chief Complaint Shortness of breath - History of Present Illness Ann-Marie Gracia is a 87 yo F with a PMHx of Sarcoidosis, HTN who presents to [facility] for shortness of breath. Patient reports that onset of symptoms was approximately 1 month ago. She reports that she has been increasingly dyspneic on exertion, even with short distances. She reports cough during this time with clear to milky appearance. She denies any wheezing, fevers, or chills. She denies any chest pain. She was prescribed Na tablets for hyponatremia which she started 10 days ago. Since then the MANUEL has worsened and she started to have lower extremity edema. She also reports orthopnea. History Information - Allergies/Home Medication List Allergies/Adverse Reactions: narcotic pain meds Allergy (Mild, Uncoded 11/04/17 18:18) GI upset, cloudy head Home Medications: Losartan Potassium [Cozaar 50 mg (*)] 50 mg PO BID 12/09/13 [Last Taken 08:00] Aspirin [Aspirin 325 mg (*)] 325 mg PO DAILY 03/09/14 [Last Taken 08/02/18] Nebivolol HCl [Bystolic] 5 mg PO BID 03/09/14 [Last Taken 08/02/18 08:00] C/E/Zn/Cu/OM3/DHA/EPA/LUT/ZEAX [Preservision Areds 2 Softgel] 1 each PO BID [Last Taken 08/02/18 08:00] Herbals/Supplements -Info Only 1 ea PO DAILY 09/05/17 [Last Taken Unknown] Hydrochlorothiazide [HCTZ (*)] 25 mg PO DAILY 08/02/18 [Last Taken 08/02/18] Ipratropium [Atrovent Neb (*)] 0.5 mg IH TID PRN 08/02/18 [Last Taken 08/02/18] Loratadine [Claritin 10 mg] 10 mg PO BID 08/02/18 [Last Taken 08/02/18 08:00] Multivitamins [Multivitamin (*)] 1 each PO BID 08/02/18 [Last Taken 08/02/18 08: 00] I have personally reviewed and updated: family history, medical history, social history, surgical history - Past Medical History hypertension, hyperlipidemia Additional medical history: h/o colitis. pulmonary fibrosis - Surgical History Reports: no pertinent surgical hx - Family History Positive for: non-pertinent - Social History Smoking Status: Former smoker Additional social history: , lives independently with Review of Systems Review of Systems: ROS: 10pt was reviewed & negative except for what was stated in HPI & below Physical Exam Physical Exam: Temp Pulse Resp BP Pulse Ox 36.8 C 64 18 129/78 H 99 08/02/18 15:20 08/02/18 19:19 08/02/18 19:19 08/02/18 19:19 08/02/18 19:19 O2 (L/minute) 2 Constitutional: no apparent distress Eyes: PERRL Ears, Nose, Mouth, Throat: moist mucous membranes Cardiovascular: regular rate and rhythym Respiratory: no respiratory distress, reduced air movement, inspiratory crackles Gastrointestinal: soft, non-tender abdomen Skin: warm Musculoskeletal: full muscle strength Neurologic: AAOx3 Psychiatric: interacting appropriately Lab Data & Imaging Review 08/02/18 16:00 08/02/18 16:00 WBC 7.73 10^3/uL (3.80-9.50) 08/02/18 16:00 RBC 4.33 10^6/uL (4.18-5.33) 08/02/18 16:00 Hgb 12.9 g/dL (12.6-16.3) 08/02/18 16:00 Hct 38.2 % (38.0-47.0) 08/02/18 16:00 MCV 88.2 fL (81.5-99.8) 08/02/18 16:00 MCH 29.8 pg (27.9-34.1) 08/02/18 16:00 MCHC 33.8 g/dL (32.4-36.7) 08/02/18 16:00 RDW 15.2 % (11.5-15.2) 08/02/18 16:00 Plt Count 247 10^3/uL (150-400) 08/02/18 16:00 MPV 8.1 fL (8.7-11.7) L 08/02/18 16:00 Neut % (Auto) 74.0 % (39.3-74.2) 08/02/18 16:00 Lymph % (Auto) 13.3 % (15.0-45.0) L 08/02/18 16:00 [place] % (Auto) 7.4 % (4.5-13.0) 08/02/18 16:00 Eos % (Auto) 3.6 % (0.6-7.6) 08/02/18 16:00 Baso % (Auto) 0.9 % (0.3-1.7) 08/02/18 16:00 Nucleat RBC Rel Count 0.0 % (0.0-0.2) 08/02/18 16:00 Absolute Neuts (auto) 5.72 10^3/uL (1.70-6.50) 08/02/18 16:00 Absolute Lymphs (auto) 1.03 10^3/uL (1.00-3.00) 08/02/18 16:00 Absolute Monos (auto) 0.57 10^3/uL (0.30-0.80) 08/02/18 16:00 Absolute Eos (auto) 0.28 10^3/uL (0.03-0.40) 08/02/18 16:00 Absolute Basos (auto) 0.07 10^3/uL (0.02-0.10) 08/02/18 16:00 Absolute Nucleated RBC 0.00 10^3/uL (0-0.01) 08/02/18 16:00 Immature Gran % 0.8 % (0.0-1.1) 08/02/18 16:00 Immature Gran # 0.06 10^3/uL (0.00-0.10) 08/02/18 16:00 D-Dimer 1.27 ug/mLFEU (0.00-0.50) H 08/02/18 16:00 Sodium 126 mEq/L (135-145) L 08/02/18 16:00 Potassium 4.0 mEq/L (3.5-5.2) 08/02/18 16:00 Chloride 91 mEq/L (97-110) L 08/02/18 16:00 Carbon Dioxide 23 mEq/l (22-31) 08/02/18 16:00 Anion Gap 12 mEq/L (6-14) 08/02/18 16:00 BUN 17 mg/dL (7-23) 08/02/18 16:00 Creatinine 0.6 mg/dL (0.6-1.0) 08/02/18 16:00 Estimated GFR > 60 08/02/18 16:00 Glucose 92 mg/dL (70-100) 08/02/18 16:00 Calcium 8.7 mg/dL (8.5-10.4) 08/02/18 16:00 POC Troponin I 0.01 ng/mL (0.00-0.08) 08/02/18 16:13 NT-Pro-B Natriuret Pep 6450 pg/mL (0-450) H 08/02/18 16:00 Assessment & Plan Assessment: Shortness of Breath - Reports onset 1 month ago, progressively worsening - 02 saturation in 90's on RA - CXR on admission shows new LLL and lingular infiltrate, consistent with PNA, superimposed on chronic changes of sarcoid - CTA Chest performed which showed no PE, pulmonary interstitial findings and enlarged mediastinal adenopathy, small L and minimal R pleural effusions, superimposed PNA cannot be excluded - Etiology of SOB multifactorial including possible PNA, mild fluid overload on background of chronic changes of sarcoid - Will give 20 mg IV Lasix this evening, additional doses as needed depending on fluid status in AM - TTE ordered to evaluate given elevated BNP on admission - Will start on Levaquin 750 mg IV qd - Continue PRN Albuterol, Duonebs - If patient not improving with above interventions, consider Pulmonology consult given hx of Sarcoid Community Acquired PNA - Seen on CXR - Levaquin as above Hyponatremia - Na 126 on admission, has been low for recent past (as low as 123) - Was placed on Na Tablets for past 10 days, will discontinue given fluid overload - Will order Urine Na, Urine/Serum Osm to further evaluate - Continue to monitor Na Inverted T Waves on EKG - Seen in Inferior leads - Trop negative on admission, chest pain free on admission - TTE ordered as above - Will continue to trend Trop x3 Enlarged mediastinal adenopathy - Seen on CT, may be 2/2 to patient's reported hx of sarcoid - Radiology recommends short term followup CT to document stability, resolution HTN - BP elevated on admission to 160/83 - Continue home BP meds when reconciled including HCTZ, Bystolic, and Losartan FEN: Regular DVT: Lovenox Code: FULL Dispo: Admit to Medicine
[2018-08-02] MEDS ORDERED: IPRATROPIUM BROMIDE 0.5 MG/2.5 ML DEYVIAL IH PRN (20:12)
[2018-08-02] MEDS ORDERED: ALBUTEROL 60 PUFFS/8 GM MDI IH PRN (20:12)
[2018-08-02] MEDS ORDERED: FUROSEMIDE 20 MG/2 ML VIAL IVP ONE (20:15)
[2018-08-02] MEDS: NEBIVOLOL HCL 5 MG TAB PO SCH (21:30)
[2018-08-02] MEDS: PRESERVISION AREDS2 FORMULA EYE VIT 1 EACH PO SCH (21:30)
[2018-08-02] MEDS: LOSARTAN POTASSIUM 50 MG TAB PO SCH (21:30)
[2018-08-02] MEDS: MULTIVITAMINS 1 EACH TAB PO SCH (21:31)
[2018-08-02] MEDS: CETIRIZINE 10 MG TAB PO SCH (21:31)
[2018-08-03] MEDS ORDERED: HYDROCHLOROTHIAZIDE 25 MG TAB PO SCH (09:00)
[2018-08-03] MEDS: CETIRIZINE 10 MG TAB PO SCH ×2 (09:45→21:15)
[2018-08-03] MEDS: NEBIVOLOL HCL 5 MG TAB PO SCH ×2 (09:45→21:14)
[2018-08-03] MEDS: MULTIVITAMINS 1 EACH TAB PO SCH ×2 (09:45→21:15)
[2018-08-03] MEDS: PRESERVISION AREDS2 FORMULA EYE VIT 1 EACH PO SCH ×2 (09:45→21:15)
[2018-08-03] MEDS: ENOXAPARIN 30 MG/0.3 ML SYR SC SCH (09:45)
[2018-08-03] MEDS: LOSARTAN POTASSIUM 50 MG TAB PO SCH ×2 (09:45→21:15)
[2018-08-03] MEDS: ASPIRIN 325 MG TAB PO SCH (09:45)
[2018-08-03] MEDS: FLUTICASONE NASAL 120 SPRAYS/16 GM MDI EACHNARE SCH (10:58)
--- NOTE | 2018-08-03 13:58 | ECHO ---
[email or web address] [address] [address] Main: [phone] Fax: Transthoracic Echocardiogram Name: BARB CARLTON MR#: [id number] Study Date: 08/03/2018 Study Time: 08:16 AM Date of : 1930 Age: 87 year(s) Height: 152.4 cm (60 in.) Weight: 47.63 kg (105 lb.) BSA: 1.42 m2 Gender: Female Examination: Echo Indication: Concern for CHF Image Quality: Adequate Contrast: Requested by: Serafin Ryan BP: 112 mmHg/67 mmHg Heart Rate: Rhythm: Indication: Concern for CHF Procedure Staff Volumetric Weigher: Sneha Martinez RDCS Reading Physician: Tato Mcknight MD Requesting Provider: Conclusions: Normal size left ventricle. Normal global systolic LV function. The ejection fraction is visually estimated to be 60 %. No regional wall motion abnormality. Unable to assess diastolic dysfunction. Dilated right ventricle. The interventricular septum is "D" shaped consistent with right ventricular pressure / volume overload. Dilated right atrium. Mild mitral valve regurgitation is present. Mild to moderate tricuspid valve regurgitation. The pulmonary artery pressure is severely increased. Right ventricular systolic pressure measures 87mmHg. Measurements: Chambers Valvular Assessment AV/MV Valvular Assessment TV/PV Normal Normal Normal Name Value Range Name Value Range Name Value Range Ao (2D): 2.6 cm (1.4 cm-2.6 AV Vmax: 1.26 m/s (1 m/s-1.7 TR Vmax: 4.53 mm/s ( - ) cm) m/s) TR PGmax: 82 mmHg ( - ) IVSd (2D): 1.1 cm (0.6 cm-1.1 AV maxP mmHg ( - ) syst. PAP: 87 mmHg ( - ) cm) AV meanP mmHg ( - ) PV Vmax: 0.56 m/s (0.6 m/s-0.9 LVDd (2D): 3.4 cm (3.9 cm-5.3 LVOT Vmax: 0.79 m/s (0.7 m/s-1.1 m/s) cm) m/s) PV PGmax: 1 mmHg ( - ) LVDs (2D): 1.9 cm (2.1 cm-4 [place] (Vmax): 1.3 cm2 ( - ) cm) [place] (VTI): 0.9 cm ( - ) LVPWd (2D): 0.7 cm ( - ) MV E Vmax: 0.76 m/s ( - ) LVOTd 1.6 cm 1.6 cm mm MV A Vmax: 0.76 m/s ( - ) Visual EF: 60 % MV E/A: 1.00 ( - ) RVDd(2D): 2.8 cm (1.9 cm-3.8 MV PHT: 0.073 s ( - ) cmmm) MVA (PHT): 3.0 s ( - ) Patient: BARB CARLTON Study Date: 08/03/2018 Page 1 of 2 08:16 AM Continued Measurements: Chambers Valvular Assessment AV/MV Valvular Assessment TV/PV Name Value Name Value Name Value LADs: 2.6 cm MV DecTime: 236 m/s CVP (est.): 5 mmHg LADs Lon.6 cm MV E/E' Septal: 16.30 LA Area: 12.3 cm2 MV E/E' Lateral: 11.50 RA Area: 14.9 cm2 Additional Vessels Name Value Ao Ascendin.0 cm Inferior Vena Cava: 1.6 cm Findings: Left Ventricle: Normal size left ventricle. No LV hypertrophy. Normal global systolic LV function. The ejection fraction is visually estimated to be 60 %. No regional wall motion abnormality. Unable to assess diastolic dysfunction. Right Ventricle: Normal RV function. Dilated right ventricle. Left Atrium: The left atrium is normal in size. Right Atrium: Dilated right atrium. Mitral Valve: The mitral valve is normal in appearance and function. Mild mitral valve regurgitation is present. No mitral stenosis is present. Aortic Valve: The aortic valve is tri-leaflet. Aortic sclerosis is present. There is no significant aortic valve regurgitation. No aortic valve stenosis is present. Tricuspid Valve: The tricuspid valve is normal in appearance and function. Mild to moderate tricuspid valve regurgitation. The pulmonary artery pressure is severely increased. Right ventricular systolic pressure measures 87mmHg. Pulmonic Valve: The pulmonic valve is normal in appearance and function. Trivial pulmonic valve regurgitation. Aorta: The aorta is normal. Normal size aortic root measuring 2.6 cm. Normal size ascending aorta measuring 3.0 cm. IVC: The IVC is normal sized. Pericardium: No pericardial effusion. No pleural effusion. Exam Comments: Some apical imaging is off axis, patient very thin. (No Signature Object) Patient: BARB CARLTON Study Date: 08/03/2018 Page 2 of 2 08:16 AM [id number]
--- NOTE | 2018-08-03 15:34 | HOSPPROG ---
Hospitalist Progress Note Assessment/Plan: DIAGNOSES: * acute right-sided congestive heart failure/acute hypoxemic respiratory failure * severe pulmonary hypertension at 89 * fibrotic lung disease which appears chronic on review of x-rays, CT scans and her history * single mediastinal lymph node just below the fran; on my review of CT scans this appears a bit larger than on her CT scan in September * right ventricular dilation, tricuspid regurgitation, mitral valve is good with only mild regurgitation on echo at this time * small left pleural effusion of uncertain significance but not present on her September CT scan * remote history of a right-sided lung nodule surgically removed in 2018 from the middle lobe, she was told was benign and due to environmental exposure * at this time I do not find any evidence of pneumonia or other infectious illness; no fever, normal white count, normal procalcitonin, no infectious appearing infiltrates * hyponatremia, hypervolemic with high urine sodium, 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 Loy Carrillo and he will see the patient in consultation * Will discuss with her possibility of lung biopsy, possibility of steroid therapy * Will order some speech bedside spirometry here but formal outpatient pulmonary function testing should be done in the pulmonology Clinic as well * She will need ongoing pulmonology follow-up for fibrotic lung disease but should also see a pulmonary hypertension specialist and she can see Dr. Kirt ambriz here in [place] now that we have him available * DVT prophylaxis * She will need home oxygen SUBJECTIVE: Still short of breath but slightly improved after diuresis overnight Still some cough, dry No pain or fever symptoms In reviewing the patient's past history she says that some decades ago she was diagnosed with sarcoidosis but never required any treatment. This did not seem to be an ongoing problem. In 2014 she was seen by Kaleb Love for chronic cough and there was nothing identified as a cause. She then follow-up with another of physician at [facility] who did not find a cause for her cough, but did identify some mild pulmonary hypertension. More recently this past August she had a respiratory syncytial virus infection, and this led to the CT scan done here in September that does show patchy diffuse fibrotic lung disease. She saw Dr. Fox at [facility] over the last several months however no specific other diagnosis was made, her pulmonary pressures were not reassessed, and no treatments were started other than acid suppression for possible reflux. OBJECTIVE Vitals reviewed: Stable vitals Requiring ongoing oxygen with 78% room air oxygen saturation Political Researcher, my review: Sinus Exam: alert oriented skin warm dry color ok resps is shallow but not labored at rest on oxygen right now lungs diminished BSs, with for diffuse fine rales typical of fibrotic lung disease heart regular with a systolic murmur consistent with TR abd soft nondistended nontender, bowel sounds present limbs warm, still some pitting edema iv site ok Lab data: Urine sodium 85 Metabolic panel with serum sodium now up to 130 Troponins all normal Procalcitonin negative I reviewed images of CT scans from this admission, September of this year, and 2014. I have also looked at her chest x-ray from yesterday. Particularly in the current CT and the September CT she has a patchy diffuse ground-glass inflammatory process in both lungs, with 1 mediastinal node just below the left atrium. This no does appear a bit larger now than it did in September and is just a bit less than 3 cm. When I reviewed the 2014 CT scan, I see to a much milder degree of very subtle but then unappreciated patchy ground-glass process in both lungs. There is no adenopathy at that time. Her x-ray shows a diffuse fibrotic lung disease appearance. Objective: Vital Signs Temp Pulse Resp BP Pulse Ox 36.3 C 63 14 138/74 H 97 08/03/18 11:18 08/03/18 11:18 08/03/18 11:18 08/03/18 11:18 08/03/18 11:18 Microbiology 08/03/18 11:57 Respiratory Panel (PCR) - Final Nasal, Sinus - Swab No Organism Detected By Pcr Laboratory Results 08/03/18 02:58 08/02/18 08/03/18 08/04/18 06:59 06:59 06:59 Intake Total 1000 Output Total 900 Balance 1000 -900 - Time Spent With Patient Time Spent with Patient: greater than 35 minutes Time Spent with Patient: Greater than 35 minutes spent on this patients care, greater than 50% of time spent counseling, educating, and coordinating care regarding the above mentioned plan. ICD10 Worksheet Patient Problems: Problems Problem Status Onset Acute exacerbation of congestive heart failure Acute Dyspnea Acute Hyponatremia Acute Osteoarthritis of left knee Acute Pneumonitis Acute
[2018-08-03] MEDS ORDERED: PROTOCOL POTASSIUM 1 DOSE MISC PRN (15:37)
--- NOTE | 2018-08-03 15:41 | HOSPPROG ---
Hospitalist Progress Note Assessment/Plan: DIAGNOSES: * acute right-sided congestive heart failure/acute hypoxemic respiratory failure * severe pulmonary hypertension at 89 * fibrotic lung disease which appears chronic on review of x-rays, CT scans and her history * single mediastinal lymph node just below the fran; on my review of CT scans this appears a bit larger than on her CT scan in September * right ventricular dilation, tricuspid regurgitation, mitral valve is good with only mild regurgitation on echo at this time * small left pleural effusion of uncertain significance but not present on her September CT scan * remote history of a right-sided lung nodule surgically removed in 2018 from the middle lobe, she was told was benign and due to environmental exposure * at this time I do not find any evidence of pneumonia or other infectious illness; no fever, normal white count, normal procalcitonin, no infectious appearing infiltrates * hyponatremia, hypervolemic with high urine sodium, 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 Loy Carrillo and he will see the patient in consultation * Will discuss with her possibility of lung biopsy, possibility of steroid therapy * Will order some speech bedside spirometry here but formal outpatient pulmonary function testing should be done in the pulmonology Clinic as well * She will need ongoing pulmonology follow-up for fibrotic lung disease but should also see a pulmonary hypertension specialist and she can see Dr. Kirt ambriz here in [place] now that we have him available * DVT prophylaxis * She will need home oxygen SUBJECTIVE: Still short of breath but slightly improved after diuresis overnight Still some cough, dry No pain or fever symptoms In reviewing the patient's past history she says that some decades ago she was diagnosed with sarcoidosis but never required any treatment. This did not seem to be an ongoing problem. In 2014 she was seen by Kaleb Love for chronic cough and there was nothing identified as a cause. She then follow-up with another of physician at [facility] who did not find a cause for her cough, but did identify some mild pulmonary hypertension. More recently this past August she had a respiratory syncytial virus infection, and this led to the CT scan done here in September that does show patchy diffuse fibrotic lung disease. She saw Dr. Fox at [facility] over the last several months however no specific other diagnosis was made, her pulmonary pressures were not reassessed, and no treatments were started other than acid suppression for possible reflux. OBJECTIVE Vitals reviewed: Stable vitals Requiring ongoing oxygen with 78% room air oxygen saturation Renal Nurse, my review: Sinus Exam: alert oriented skin warm dry color ok resps is shallow but not labored at rest on oxygen right now lungs diminished BSs, with for diffuse fine rales typical of fibrotic lung disease heart regular with a systolic murmur consistent with TR abd soft nondistended nontender, bowel sounds present limbs warm, still some pitting edema iv site ok Lab data: Urine sodium 85 Metabolic panel with serum sodium now up to 130 Troponins all normal Procalcitonin negative I reviewed images of CT scans from this admission, September of this year, and 2014. I have also looked at her chest x-ray from yesterday. Particularly in the current CT and the September CT she has a patchy diffuse ground-glass inflammatory process in both lungs, with 1 mediastinal node just below the left atrium. This no does appear a bit larger now than it did in September and is just a bit less than 3 cm. When I reviewed the 2014 CT scan, I see to a much milder degree of very subtle but then unappreciated patchy ground-glass process in both lungs. There is no adenopathy at that time. Her x-ray shows a diffuse fibrotic lung disease appearance. Objective: Vital Signs Temp Pulse Resp BP Pulse Ox 36.3 C 63 14 138/74 H 97 08/03/18 11:18 08/03/18 11:18 08/03/18 11:18 08/03/18 11:18 08/03/18 11:18 Microbiology 08/03/18 11:57 Respiratory Panel (PCR) - Final Nasal, Sinus - Swab No Organism Detected By Pcr Laboratory Results 08/03/18 02:58 08/02/18 08/03/18 08/04/18 06:59 06:59 06:59 Intake Total 1000 Output Total 900 Balance 1000 -900 - Time Spent With Patient Time Spent with Patient: greater than 35 minutes Time Spent with Patient: Greater than 35 minutes spent on this patients care, greater than 50% of time spent counseling, educating, and coordinating care regarding the above mentioned plan. ICD10 Worksheet Patient Problems: Problems Problem Status Onset Acute exacerbation of congestive heart failure Acute Dyspnea Acute Hyponatremia Acute Osteoarthritis of left knee Acute Pneumonitis Acute
[2018-08-03] MEDS ORDERED: POTASSIUM CL 10 MEQ TAB PO ONE (15:44)
[2018-08-03] MEDS: FUROSEMIDE 20 MG/2 ML VIAL IVP SCH (16:23)
--- NOTE | 2018-08-03 16:35 | ASMTCMCOM ---
CM Note CM Note Notes: Pt admitted for SOB and CHF in the setting of Sarcoidosis. Pt lives independently with . OT is recommending home care. PT has not yet evaluated. Discharge plans pending recommendation from PT. CM to follow. D/C Plan: Independent v [facility] Date Signed: 08/03/2018 04:35 PM Electronically Signed By:Pham Silver
--- NOTE | 2018-08-03 17:45 | PDMN ---
Medical Necessity Medical necessity: Pt meets IP criteria as of 08/03/2018 per and MCG M-190 ( Heart Failure); los > 2 mn for ongoing tx and management of acute R sided CHF with acute hypoxemic respiratory failure (78% on RA) and hyponatremia as well as fibrotic lung disease; requiring respiratory support, pulmonology consultation, cardiac rehab consultation, therapies, serial labs, and IV diuresis.
--- NOTE | 2018-08-03 18:19 | GCON ---
CHEST CONSULTATION REFERRING PHYSICIAN: aRdu Danielson MD REASON FOR CONSULTATION: Hypoxemia, pulmonary hypertension. I was asked to see the patient in consultation by Dr. Radu Danielson. HISTORY OF PRESENT ILLNESS: The patient is an extremely pleasant 87-year-old white female with a pas t medical history including hypertension, hyperlipidemia, "pulmonary fibrosis," as well as a history of sarcoidosis. She presented to the emergency room and admitted on 08/02 with increasing breathless ness. This is worse with any form of exertion. She also has had a cough. She states that she was i n her normal state of health until approximately 6 months ago when she developed an RSV infection of her lungs. Over the last 10 days, she has noticed increasing breathlessness. She has been followed by [facility] for her pulmonary hypertension. She has previously been followed by Dr. Kaleb Biggs [facility], as well as Dr. Jones for her sarcoidosis. She has never been on supplemental steroids for her s arcoid. REVIEW OF SYSTEMS: Ten-point review of systems is performed and negative, except for what is listed in HPI. ALLERGIES: Narcotics. MEDICATIONS: At home include multivitamin, loratadine, Atrovent, hydrochlorothiazide, Bystolic, aspi rin, Cozaar. PAST MEDICAL HISTORY: Again significant for sarcoidosis, pulmonary fibrosis, hypertension, and hyper lipidemia. FAMILY HISTORY: Noncontributory. SOCIAL HISTORY: Previous smoker, none for 50 years. No significant alcohol use. She is a retired e ducator. She is , lives with her . She has children. PHYSICAL EXAM: VITAL SIGNS: Blood pressure 138/74, pulse 63, respirations 14. Temperature is 36.3. Oxygen saturation 97% on 2 L. GENERAL: She is a thin, but well-developed elderly white female who is resting comfortably, in no acute distress. HEENT: Eyes are PERRL, EOMI. Throat shows no erythe ma or tonsillar hypertrophy. NECK: Supple. There is no cervical adenopathy. HEART: Regular rate and rhythm, with a loud P2 component. There is a 2/6 systolic murmur, left sternal border, without r adiation. LUNGS: Diminished breath sounds and bibasilar Velcro-like crackles. ABDOMEN: Soft, nont aby. Bowel sounds are present in all 4 quadrants. EXTREMITIES: 2+ lower extremity edema. LABORATORIES: White count 7.7, hemoglobin 12, hematocrit 38. Platelet count is 247. Sodium 130, po tassium 3.4, chloride 95. CO2 is 26, BUN 15, creatinine 0.7. Glucose is 72. CT scan of the chest re veals no evidence of PE, but there are pulmonary interstitial findings, as well as hazy ground-glass opacifications in both lungs. This is mostly unchanged from previous. There is enlarged mediastinal adenopathy present. There is a small pleural effusion. IMPRESSION: 1. Sarcoidosis. The patient states this is from a biopsy 20 years ago. She has never been on suppl emental steroids for this. 2. Pulmonary fibrosis. This may be consistent with longstanding sarcoid. 3. Acute respiratory failure secondary to above. 4. Severe pulmonary hypertension, with a right ventricular systolic pressure of 87 mmHg. Ejection f raction is at 60%. Etiology of this is unclear, though worsening sarcoidosis and pulmonary fibrosis would be likely the cause. She has no evidence of sleep apnea. RECOMMENDATIONS: 1. Agree with diuresis. 2. Will obtain an angiotensin-converting enzyme level as soon as possible. 3. Will consider starting high-dose steroids after the [place] level returns. 4. Wean FiO2 as tolerated. 5. PT and OT. Thank you very much for allowing me to participate in the care of this interesting patient. Will fol low along with you. /[id number]/MODL
[2018-08-04] MEDS ORDERED: POTASSIUM CL 10 MEQ TAB PO ONE (07:25)
[2018-08-04] MEDS ORDERED: FUROSEMIDE 20 MG/2 ML VIAL IVP SCH (09:00)
[2018-08-04] MEDS: MULTIVITAMINS 1 EACH TAB PO SCH ×2 (09:28→21:40)
[2018-08-04] MEDS: PRESERVISION AREDS2 FORMULA EYE VIT 1 EACH PO SCH ×2 (09:29→21:40)
[2018-08-04] MEDS: ASPIRIN 325 MG TAB PO SCH (09:29)
[2018-08-04] MEDS: LOSARTAN POTASSIUM 50 MG TAB PO SCH ×2 (09:29→21:40)
[2018-08-04] MEDS: NEBIVOLOL HCL 5 MG TAB PO SCH ×2 (09:29→21:39)
[2018-08-04] MEDS: CETIRIZINE 10 MG TAB PO SCH ×2 (09:29→21:39)
[2018-08-04] MEDS: FUROSEMIDE 20 MG/2 ML VIAL IVP SCH ×2 (09:30→15:22)
[2018-08-04] MEDS: ENOXAPARIN 30 MG/0.3 ML SYR SC SCH (09:30)
[2018-08-04] MEDS: FLUTICASONE NASAL 120 SPRAYS/16 GM MDI EACHNARE SCH (09:31)
--- NOTE | 2018-08-04 13:27 | SOAPPROG ---
SOAP Progress Note Assessment/Plan: Assessment/plan: * Interstitial lung disease-evidence of patchy ground-glass attenuation on CT. Etiology is unclear. Possibly sarcoid -will start prednisone 40 mg per day * Sarcoidosis-by biopsy 20 years ago. -awaiting angiotensin-converting enzyme level * Acute respiratory failure-oxygen requirement stable -wean as tolerated Subjective: Sitting up in chair. Resting comfortably. Still with cough. Objective: Vital Signs Temp Pulse Resp BP Pulse Ox 36.7 C 60 20 118/69 98 08/04/18 12:00 08/04/18 12:00 08/04/18 12:00 08/04/18 12:00 08/04/18 12:00 Laboratory Results 08/04/18 04:09 08/03/18 08/04/18 08/05/18 05:59 05:59 05:59 Intake Total 550 340 Output Total 1400 625 Balance -850 -285 - Time Spent With Patient Time Spent With Patient: 25 min of time spent with patient, over 1/2 involved with coordination of care or counseling. Case discussed with hospitalist Physical Exam - Physical Exam General Appearance: WD/WN, alert, no apparent distress EENT: PERRL/EOMI, normal ENT inspection Neck: non-tender Respiratory: crackles (Bibasilar), No respiratory distress, No wheezing Cardiac/Chest: normal peripheral pulses, regular rate, rhythm, systolic murmur Abdomen: normal bowel sounds, non-tender, soft Pelvic Exam: deferred Skin: normal color, warm/dry Extremities: normal range of motion, non-tender, normal inspection, normal capillary refill Neuro/Psych: no motor/sensory deficits, alert, normal mood/affect, oriented x 3 ICD10 Worksheet Patient Problems: Problems Problem Status Onset Acute exacerbation of congestive heart failure Acute Dyspnea Acute Hyponatremia Acute Osteoarthritis of left knee Acute Pneumonitis Acute
[2018-08-04] MEDS: predniSONE 20 MG TAB PO SCH (13:59)
--- NOTE | 2018-08-04 14:29 | HOSPPROG ---
Hospitalist Progress Note Assessment/Plan: DIAGNOSES: * acute right-sided congestive heart failure/acute hypoxemic respiratory failure * severe pulmonary hypertension at 87 * fibrotic lung disease which appears chronic on review of x-rays, CT scans and her history * single mediastinal lymph node just below the fran; on my review of CT scans this appears a bit larger than on her CT scan in September * right ventricular dilation, tricuspid regurgitation, mitral valve is good with only mild regurgitation on echo at this time * small left pleural effusion of uncertain significance but not present on her September CT scan * remote history of a right-sided lung nodule surgically removed in 2018 from the middle lobe, she was told was benign and due to environmental exposure * at this time I do not find any evidence of pneumonia or other infectious illness; no fever, normal white count, normal procalcitonin, no infectious appearing infiltrates * hyponatremia, hypervolemic with high urine sodium, 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 Carrillo this morning who recommends starting Prednisone empirically, 40 mg qd * Will order some speech bedside spirometry here but formal outpatient pulmonary function testing should be done in the pulmonology Clinic as well * She will need ongoing pulmonology follow-up for fibrotic lung disease but should also see a pulmonary hypertension specialist and she can see Dr. Kirt Woodson * DVT prophylaxis * She will need home oxygen Subjective: Patient reports some improvement in MANUEL Objective: Vital Signs Temp Pulse Resp BP Pulse Ox 36.7 C 60 20 118/69 98 08/04/18 12:00 08/04/18 12:00 08/04/18 12:00 08/04/18 12:00 08/04/18 12:00 Laboratory Results 08/04/18 04:09 08/03/18 08/04/18 08/05/18 05:59 05:59 05:59 Intake Total 550 340 Output Total 1400 625 Balance -850 -285 - Physical Exam Constitutional: no apparent distress Eyes: PERRL Ears, Nose, Mouth, Throat: moist mucous membranes Cardiovascular: regular rate and rhythym Respiratory: no respiratory distress, reduced air movement Gastrointestinal: soft, non-tender abdomen Skin: warm Neurologic: AAOx3 Psychiatric: interacting appropriately ICD10 Worksheet Patient Problems: Problems Problem Status Onset Acute exacerbation of congestive heart failure Acute Dyspnea Acute Hyponatremia Acute Osteoarthritis of left knee Acute Pneumonitis Acute
--- NOTE | 2018-08-04 14:37 | ASMTCMCOM ---
CM Note CM Note Notes: Pts case discussed w/ ABBY Arriaga. Therapies are recommending HC. They would like to use [facility]. [facility] is able to accept. Pts had questions about their [facility], [facility] care. CM called w/ pt and in the room. He was just curious about the servies they provide if they needed it in the future. CM provided pts w/ phone number to [employer]. CM to follow. Plan: [facility]; PT, OT, RN Date Signed: 08/04/2018 02:37 PM Electronically Signed By:OSMIN Roberto
[2018-08-05 09:24] VITALS: BP 105/56
--- NOTE | 2018-08-05 09:57 | PDHOMEO2F ---
Home Oxygen Face to Face Home Orders: I certify that a physician or a nurse practitioner or physician's preschool teacher's assistant has had a [id number] encounter with this patient on the date of this order due to the diagnosis listed, which relates to the primary reason the patient requires home oxygen. Alternative treatments have been tried, or considered, and deemed ineffective. It is anticipated that supplemental oxygen will result in improvement with treatment. Home oxygen qualifying diagnosis: Pulmonary Fibrosis Home oxygen secondary diagnosis: Pulmonary HTN SpO2 on room air (%): 85 Frequency of home oxygen needed: continuous Home oxygen liters per minute: 2 Home oxygen delivery device: nasal cannula Concentrator: Yes E-tanks for mobility and back up: Yes If ordering portable O2, is the patient mobile in the home?: Yes I certify that, based on these findings, the home oxygen is medically necessary for this patient for the following length of time. Length of time home oxygen needed: 99 years
[2018-08-05] MEDS: ASPIRIN 325 MG TAB PO SCH (10:04)
[2018-08-05] MEDS: NEBIVOLOL HCL 5 MG TAB PO SCH (10:04)
[2018-08-05] MEDS: predniSONE 20 MG TAB PO SCH (10:04)
[2018-08-05] MEDS: LOSARTAN POTASSIUM 50 MG TAB PO SCH (10:04)
[2018-08-05] MEDS: MULTIVITAMINS 1 EACH TAB PO SCH (10:04)
[2018-08-05] MEDS: PRESERVISION AREDS2 FORMULA EYE VIT 1 EACH PO SCH (10:04)
[2018-08-05] MEDS: CETIRIZINE 10 MG TAB PO SCH (10:04)
[2018-08-05] MEDS: ENOXAPARIN 30 MG/0.3 ML SYR SC SCH (10:04)
[2018-08-05] MEDS: FLUTICASONE NASAL 120 SPRAYS/16 GM MDI EACHNARE SCH (10:05)
[2018-08-05] MEDS: FUROSEMIDE 20 MG/2 ML VIAL IVP SCH (10:22)
--- NOTE | 2018-08-05 11:11 | SOAPPROG ---
SOAP Progress Note Assessment/Plan: Assessment/plan: * Interstitial lung disease-evidence of patchy ground-glass attenuation on CT. Etiology is unclear. Possibly sarcoid -continue prednisone at 40 mg a day until patient sees me -angiotensin-converting enzyme level normal * Acute respiratory failure-oxygen requirement stable -wean as tolerated * Disposition-okay for discharge home with follow-up with myself in approximately 2 weeks Subjective: Resting comfortably. Feels somewhat better. Breathing is mostly unchanged Objective: Vital Signs Temp Pulse Resp BP Pulse Ox 37.1 C 64 12 105/56 L 85 L 08/05/18 08:00 08/05/18 08:00 08/05/18 08:00 08/05/18 08:00 08/05/18 08:00 Laboratory Results 08/05/18 04:03 08/04/18 08/05/18 08/06/18 05:59 05:59 05:59 Intake Total 550 1230 Output Total 1400 1825 Balance -850 -595 - Time Spent With Patient Time Spent With Patient: 25 min of time spent with patient, over 1/2 involved coordination of care counseling. Case discussed with Nursing and hospitalist Physical Exam - Physical Exam General Appearance: alert, no apparent distress EENT: PERRL/EOMI Neck: non-tender, full range of motion Respiratory: crackles (Bibasilar), No respiratory distress, No wheezing Cardiac/Chest: normal peripheral pulses, regular rate, rhythm Peripheral Pulses: 2+: carotid (R), carotid (L), femoral (R), femoral (L), dorsalis-pedis (R), dorsalis-pedis (L) Abdomen: normal bowel sounds, non-tender, soft Pelvic Exam: deferred Rectal: deferred Skin: normal color, warm/dry Neuro/Psych: no motor/sensory deficits, alert, normal mood/affect, oriented x 3 ICD10 Worksheet Patient Problems: Problems Problem Status Onset Acute exacerbation of congestive heart failure Acute Dyspnea Acute Hyponatremia Acute Osteoarthritis of left knee Acute Pneumonitis Acute chronic disease mgmt/ transitional care Acute
--- NOTE | 2018-08-05 13:11 | PDIAF ---
- Diagnosis Diagnosis: Pulmonary Fibrosis, Pulmonary HTN Code Status: Full Code - Medication Management Discharge Medications: electronically signed and located in the Home Medication List. - Orders Services needed: Home Care, Registered Nurse, Physical Therapy, Occupational Therapy Home Care Face to Face: I certify that this patient was under my care and that I had the required [id number] encounter meeting the encounter requirements on the discharge day. My findings support the fact that the patient is homebound as defined in Home Care Face to Face Continued: CMS Chapter 7 Medicare Benefits Manual 30.1.1 , The condition of the patient is such that there exists a normal inability to leave home and consequently, leaving home would require a considerable and taxing effort. Isolation Type: None Additional Instructions: You are to followup with Pulmonology, Dr. Carrillo. Please contact their office to set up an appointment, their office number is . - Follow Up Care Current Providers and Referrals: Latoya Guzman MD [Primary Care Provider] - As per Instructions
--- NOTE | 2018-08-05 13:46 | ASMTLACE ---
LACE Length of stay for Answers: 3 days current admission Acuity / Level of Answers: Yes Care: Did the patient have an inpatient admission? Comorbidities - select Answers: Opioid dependence all that apply / Chronic pain Other Notes: HTN; Sarcoidosis; HLD # of Emergency department Answers: 1-2 visits in the last 6 months Score: 12 Date Signed: 08/05/2018 01:45 PM Electronically Signed By:OSMIN Roberto
--- NOTE | 2018-08-05 13:50 | ASMTDCNOTE ---
Case Management Discharge Discharge Order Complete? Answers: Yes Patient to Obtain Answers: via Family Medications Transportation Arranged Answers: Family/Friends EMTALA Complete Answers: No Case Management Transport Answers: No Form Complete Faxed Final Orders Answers: Yes Agency/Facility Transfer Answers: Yes Report Printed & Faxed to Receiving Agency Family Notified Answers: No Discharge Comments Notes: Pts case discussed in tx rounds. Pt is being d/c'd today. CM notified [facility] of the d/c. Jinnydu will call to give report. CM available for changes. Plan: [facility]; PT, OT, RN Date Signed: 08/05/2018 01:49 PM Electronically Signed By:OSMIN Roberto
--- NOTE | 2018-08-05 13:51 | ASDISCHSUM ---
Discharge Information Plan Status:Home with Home Health Medically Cleared to Leave: Discharge Date: CM D/C Disposition: ADT D/C Disposition: Projected Discharge Date:08/04/2018 11:00 AM Transportation at D/C: Discharge Delay Reason: Follow-Up Date:08/04/2018 11:00 AM Discharge Slot: Final Diagnosis: Placement Information Referral Type:*Home Health Care Services Referral ID:[id number] Provider Name:[facility] Address 1:[address] Address 2: City:[place] Selection Factors: State:[place] Patient Contact Information Contact Name:REANNASHALINIJEFF Relationship: Address:[address] City:[place] Alternate Phone: State/Zip Code:[place] [address] Email: Financial Information Financial Class:Medicare Primary Plan Desc:MEDICARE INPATIENT Primary Plan Number:[id number] Secondary Plan Desc:[employer] PPO Secondary Plan Number:[id number] Assessment Information LACE LACE Length of stay for Answers: 3 days current admission Acuity / Level of Answers: Yes Care: Did the patient have an inpatient admission? Comorbidities - select Answers: Opioid dependence all that apply / Chronic pain Other Notes: HTN; Sarcoidosis; HLD # of Emergency department Answers: 1-2 visits in the last 6 months Score: 12 Date Signed: 08/05/2018 01:45 PM Electronically Signed By:OSMIN Roberto [facility] CM Progress Note CM Note CM Note Notes: Pt admitted for SOB and CHF in the setting of Sarcoidosis. Pt lives independently with . OT is recommending home care. PT has not yet evaluated. Discharge plans pending recommendation from PT. CM to follow. D/C Plan: Independent v [facility] Date Signed: 08/03/2018 04:35 PM Electronically Signed By:Pham Silver [facility] CM Progress Note CM Note CM Note Notes: Pts case discussed w/ ABBY Arriaga. Therapies are recommending HC. They would like to use [facility]. [facility] is able to accept. 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 CM called w/ pt and in the room. He was just curious about the servies they provide if they needed it in the future. CM provided pts w/ phone number to [employer]. CM to follow. Plan: [facility]; PT, OT, RN Date Signed: 08/04/2018 02:37 PM Electronically Signed By:OSMIN Roberto Case Management Discharge Plan Note Case Management Discharge Discharge Order Complete? Answers: Yes Patient to Obtain Answers: via Family Medications Transportation Arranged Answers: Family/Friends EMTALA Complete Answers: No Case Management Transport Answers: No Form Complete Faxed Final Orders Answers: Yes Agency/Facility Transfer Answers: Yes Report Printed & Faxed to Receiving Agency Family Notified Answers: No Discharge Comments Notes: Pts case discussed in tx rounds. Pt is being d/c'd today. CM notified [facility] of the d/c. Todd will call to give report. CM available for changes. Plan: [facility]; PT, OT, RN Date Signed: 08/05/2018 01:49 PM Electronically Signed By:OSMIN Roberto Intervention Information Intervention Type:*MCMAHON-Signed Date of Service:08/03/2018 11:12 AM Patient Type:Observation Staff Member:Melinda Mares Hours: Discipline: Severity: Comment:
--- NOTE | 2018-08-05 14:02 | PDDCSUM ---
Discharge Summary Discharge Summary: Date of Admission: 08/03/2018 Date of Discharge: 08/05/2018 Consults: Pulmonology Procedures: TTE, CT Chest Followup: Dr. Carrillo, Pulmonology Hospital Course Problem List: DIAGNOSES: * acute right-sided congestive heart failure/acute hypoxemic respiratory failure * severe pulmonary hypertension * fibrotic lung disease which appears chronic on review of x-rays, CT scans and her history * single mediastinal lymph node just below the fran; on my review of CT scans this appears a bit larger than on her CT scan in September * right ventricular dilation, tricuspid regurgitation, mitral valve is good with only mild regurgitation on echo at this time * small left pleural effusion of uncertain significance but not present on her September CT scan * remote history of a right-sided lung nodule surgically removed in 2018 from the middle lobe, she was told was benign and due to environmental exposure * at this time I do not find any evidence of pneumonia or other infectious illness; no fever, normal white count, normal procalcitonin, no infectious appearing infiltrates * hyponatremia, hypervolemic with high urine sodium, 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 Carrillo, who recommends starting Prednisone empirically, 40 mg qd, will f/u as OP for further evaluation and management * She will need ongoing pulmonology follow-up for fibrotic lung disease but should also see a pulmonary hypertension specialist and she can see Dr. Kirt Woodson * Ordered home oxygen Time spent on discharge was >35 minutes with >50% of time spent on patient education and counseling.
[2018-08-06] MEDS ORDERED: FUROSEMIDE 20 MG TAB PO SCH ×2 (09:00)
== END 2018-08-05 14:55 | disposition home health service (06) | DRG 291 ==
LOC: F2W 20:20 → OBSVTOIN 08-03 15:42
PROVIDERS: ADMIT Internal Medicine; ATTEND Internal Medicine
DX: I50.811 Acute right heart failure (principal); J96.01 Acute respiratory failure with hypoxia; I27.23 Pulmonary hypertension due to lung diseases and hypoxia; I36.1 Nonrheumatic tricuspid (valve) insufficiency; J84.9 Interstitial pulmonary disease, unspecified; E87.1 Hypo-osmolality and hyponatremia; E22.2 Syndrome of inappropriate secretion of antidiuretic hormone; R59.0 Localized enlarged lymph nodes; I10 Essential (primary) hypertension; E78.5 Hyperlipidemia, unspecified; Z87.891 Personal history of nicotine dependence
CPT/HCPCS: 82164-90; 84484-ER; 97116-GP; 97161-GP; 97166-GO; 97530-GO; 97530-GP; G0378; G8978-GP-CI; G8979-GP-CI; G8987-GO-CJ; G8988-GO-CI; J1650; J1940; J1956; J7512; Q9967

== ENCOUNTER 2018-08-19 19:22 | Observation (INO) | payer OTHER ==
--- NOTE | 2018-08-19 19:42 | CPEKG ---
Test Reason : OPEN Blood Pressure : / mmHG Vent. Rate : 064 BPM Atrial Rate : 064 BPM P-R Int : 175 ms QRS Dur : 080 ms QT Int : 412 ms P-R-T Axes : 036 002 036 degrees QTc Int : 425 ms Sinus rhythm Low voltage, extremity and precordial leads Confirmed by Gaurang Rocha ([id number]) on 08/19/2018 7:41:42 PM Referred By: Confirmed By:Gaurang Rocha
[2018-08-19 19:53] LABS: PLATELET COUNT 268 10^3/uL (150-400)
--- NOTE | 2018-08-19 20:02 | EDPHY ---
H & P Time Seen by Provider: 08/19/18 19:34 HPI/ROS: CHIEF COMPLAINT: Chest pain HISTORY OF PRESENT ILLNESS: Patient was recently admitted to [facility] and discharged on the 05 of August with diagnosis of CHF, had normal ejection fraction on echocardiogram, had pulmonary hypertension. Last stress test was more than a year ago, nuclear because she has some chronic left knee pain which prevents her from running. At 5:30 p.m. Tonight she felt like she was "hit in the chest" with pain that would "take my breath away." It was associated with some"stress in my jaw"the lasted for several minutes and then went away. After about an hour symptoms completely resolved, it was always in front and never in back. No arm or jaw symptoms, no nausea or diaphoresis, not short of breath. She had some chamomile tea and some dry toast and now she is asymptomatic. She did take a full oral aspirin at home. REVIEW OF SYSTEMS: Eye: no change in vision ENT: no sore throat Cardiac: HPI Pulmonary: no cough or SOB Abdomen: no vomiting, diarrhea, abdominal pain. She does feel gassy and still feels a little bit bloated. Musculoskeletal: No leg pain Skin: no rash Neuro: no headache Constitutional: no fever : no urinary symptoms A comprehensive 10 point review of systems is otherwise negative aside from elements mentioned in the history of present illness. PAST MEDICAL HISTORY: Includes hypertension hyperlipidemia, scoliosis, right lung surgery 20 years ago, congestive heart failure recently. Social history: Nonsmoker General Appearance: Alert and conversant, cooperative. Eyes: No scleral icterus. ENT, Mouth: Normal mucous membranes. Respiratory: Normal respiratory effort, breath sounds equal, lungs are clear to auscultation. Cardiovascular: Regular rate and rhythm. Gastrointestinal: Abdomen is soft and non tender. No epigastric or right upper quadrant tenderness, not distended, bowel sounds present. Neurological: Alert, face symmetric, normal motor and sensory in extremities. Skin: Warm and dry, no rashes. Musculoskeletal: No peripheral edema. Psychiatric: Not agitated. Emergency Department course/MDM: Patient with multiple coronary disease risk factors presents with an hour of chest pain. Initial EKG and troponin are negative for acute myocardial infarction. Plan for admission for further risk stratification. 2014: Sodium 121, troponin negative. Results discussed the patient, she is in agreement with admission for further evaluation. Lipase noted, less than twice the upper limit of normal. I think pancreatitis less likely at this time. Smoking Status: Former smoker Constitutional: Initial Vital Signs Temperature (C) 36.3 C 08/19/18 19:27 Heart Rate 68 08/19/18 19:27 Respiratory Rate 16 08/19/18 19:27 Blood Pressure 170/71 H 08/19/18 19:27 O2 Sat (%) 92 08/19/18 19:27 O2 Delivery Mode Nasal Cannula O2 (L/minute) 1 Allergies/Adverse Reactions: narcotic pain meds Allergy (Mild, Uncoded 11/04/17 18:18) GI upset, cloudy head Home Medications: Medication Instructions Recorded Losartan Potassium [Cozaar 50 mg 50 mg PO BID 12/09/13 (*)] Aspirin [Aspirin 325 mg (*)] 325 mg PO DAILY 03/09/14 Nebivolol HCl [Bystolic] 5 mg PO BID 03/09/14 C/E/Zn/Cu/OM3/DHA/EPA/LUT/ZEAX 1 each PO BID 09/05/17 [Preservision Areds 2 Softgel] Herbals/Supplements -Info Only 1 ea PO DAILY 09/05/17 Albuterol [Proventil Inhaler HFA 2 puffs IH Q4HRS PRN mdi 09/09/17 (*)] Ipratropium [Atrovent Neb (*)] 0.5 mg IH TID PRN 08/02/18 Multivitamins [Multivitamin (*)] 1 each PO BID 08/02/18 Furosemide [Lasix 20 MG (*)] 20 mg PO DAILY #30 tab 08/05/18 Medical Decision Making - Diagnostics EKG Interpretation: 12-lead EKG interpreted by me; official reading is in computer system. My interpretation is sinus rhythm with lower extremity and precordial voltage, no acute ischemic changes, rate 64 Imaging Results: Chest x-ray does not show infiltrate wide mediastinum or pulmonary edema. Imaging: I viewed and interpreted images myself Differential Diagnosis: Differential diagnosis considered for chest pain including but not limited to myocardial ischemia, aortic dissection, pancreatitis, cholecystitis, pericarditis, pulmonary embolus, chest wall pain, pleural inflammation and pulmonary infectious causes. Consult/Admit Bed Type: Dr. Marleny Sher - Data Points Laboratory Results: Laboratory Results 08/19/18 19:40 08/19/18:40 08/19/18 08/19/18 08/19/18 19:44 19:40 19:40 WBC RBC Hgb Hct MCV MCH MCHC RDW Plt Count MPV Neut % (Auto) Lymph % (Auto) [place] % (Auto) Eos % (Auto) Baso % (Auto) Nucleat RBC Rel Count Absolute Neuts (auto) Absolute Lymphs (auto) Absolute Monos (auto) Absolute Eos (auto) Absolute Basos (auto) Absolute Nucleated RBC Immature Gran % Immature Gran # Sodium 121 mEq/L L mEq/L (135-145) Potassium 4.5 mEq/L mEq/L (3.5-5.2) Chloride 87 mEq/L L mEq/L (97-110) Carbon Dioxide 27 mEq/l mEq/l (22-31) Anion Gap 7 mEq/L mEq/L (6-14) BUN 23 mg/dL mg/dL (7-23) Creatinine 0.6 mg/dL mg/dL (0.6-1.0) Estimated GFR > 60 Glucose 129 mg/dL H mg/dL (70-100) Calcium 8.3 mg/dL L mg/dL (8.5-10.4) Total Bilirubin 0.5 mg/dL mg/dL (0.1-1.4) Conjugated Bilirubin 0.2 mg/dL mg/dL (0.0-0.5) Unconjugated Bilirubin 0.3 mg/dL mg/dL (0.0-1.1) AST 32 IU/L IU/L (14-46) ALT 38 IU/L IU/L (9-52) Alkaline Phosphatase 67 IU/L IU/L (38-126) POC Troponin I 0.01 ng/mL ng/mL (0.00-0.08) Total Protein 6.4 g/dL g/dL (6.3-8.2) Albumin 3.5 g/dL g/dL (3.5-5.0) Lipase 479 IU/L H IU/L (23-300) 08/19/18 19:40 WBC 11.34 10^3/uL H 10^3/uL (3.80-9.50) RBC 4.95 10^6/uL 10^6/uL (4.18-5.33) Hgb 14.9 g/dL g/dL (12.6-16.3) Hct 43.3 % % (38.0-47.0) MCV 87.5 fL fL (81.5-99.8) MCH 30.1 pg pg (27.9-34.1) MCHC 34.4 g/dL g/dL (32.4-36.7) RDW 16.0 % H % (11.5-15.2) Plt Count 268 10^3/uL 10^3/uL (150-400) MPV 8.0 fL L fL (8.7-11.7) Neut % (Auto) 87.6 % H % (39.3-74.2) Lymph % (Auto) 6.2 % L % (15.0-45.0) [place] % (Auto) 3.7 % L % (4.5-13.0) Eos % (Auto) 0.1 % L % (0.6-7.6) Baso % (Auto) 0.3 % % (0.3-1.7) Nucleat RBC Rel Count 0.0 % % (0.0-0.2) Absolute Neuts (auto) 9.94 10^3/uL H 10^3/uL (1.70-6.50) Absolute Lymphs (auto) 0.70 10^3/uL L 10^3/uL (1.00-3.00) Absolute Monos (auto) 0.42 10^3/uL 10^3/uL (0.30-0.80) Absolute Eos (auto) 0.01 10^3/uL L 10^3/uL (0.03-0.40) Absolute Basos (auto) 0.03 10^3/uL 10^3/uL (0.02-0.10) Absolute Nucleated RBC 0.00 10^3/uL 10^3/uL (0-0.01) Immature Gran % 2.1 % H % (0.0-1.1) Immature Gran # 0.24 10^3/uL H 10^3/uL (0.00-0.10) Sodium Potassium Chloride Carbon Dioxide Anion Gap BUN Creatinine Estimated GFR Glucose Calcium Total Bilirubin Conjugated Bilirubin Unconjugated Bilirubin AST ALT Alkaline Phosphatase POC Troponin I Total Protein Albumin Lipase Point of Care Test Results: Chemistry 08/19/18 19:44 POC Troponin I 0.01 ng/mL ng/mL (0.00-0.08) Departure - Departure Disposition: [facility] Acute Clinical Impression: Hyponatremia Chest pain Qualifiers: Chest pain type: unspecified Qualified Code(s): R07.9 - Chest pain, unspecified Condition: Good Referrals: Latoya Guzman MD [Primary Care Provider] - As per Instructions
[2018-08-19] MEDS ORDERED: NITROGLYCERIN 0.4 MG BTL SL PRN (22:31)
[2018-08-19] MEDS ORDERED: CETIRIZINE 10 MG TAB PO PRN (23:29)
[2018-08-19] MEDS ORDERED: IPRATROPIUM BROMIDE 0.5 MG/2.5 ML DEYVIAL IH PRN (23:29)
[2018-08-19] MEDS ORDERED: ALBUTEROL 60 PUFFS/8 GM MDI IH PRN (23:29)
[2018-08-19] MEDS ORDERED: FLUTICASONE NASAL 120 SPRAYS/16 GM MDI EACHNARE PRN (23:29)
[2018-08-19] MEDS: NEBIVOLOL HCL 5 MG TAB PO SCH (23:45)
[2018-08-19] MEDS: LOSARTAN POTASSIUM 50 MG TAB PO SCH (23:45)
--- NOTE | 2018-08-20 00:51 | PDGENHP ---
History and Physical - Chief Complaint Chest pain - History of Present Illness 87 yo F w/ hx of dCHF, pHTN, HTN, and ?lung disease presents after episode of chest pain. The patient was in her usual state of health today when she experienced an episode of chest pain while walking. She describes this as central, 8, with radiation to her R jaw. She has not had previous pain previously. The pain subsided after about 15 minutes. She took a full dose aspirin at home prior to coming to the ED. In the ED her initial cardiac work- up is negative but her laboratory work-up is notable for acute on chronic hyponatremia. At the time of my evaluation patient is symptom free. OF note, patient was admitted in July for exacerbation of diastolic heart failure and severe pulmonary hypertension in the setting of pulmonary fibrosis. Her furosemide dose was recently increased to 40 mg qD and prednisone to 40 mg qD. Case discussed with Dr. Sher; records reviewed and summarized above. History Information - Allergies/Home Medication List Allergies/Adverse Reactions: Eyrruec-Wsf-Tca Reductase Inhibitor Allergy (Intermediate, Unverified 08/19/18 22:50) Other-Enter Comments narcotic pain meds Allergy (Mild, Uncoded 11/04/17 18:18) GI upset, cloudy head Home Medications: Losartan Potassium [Cozaar 50 mg (*)] 50 mg PO BID 12/09/13 [Last Taken 09:00] Aspirin [Aspirin 325 mg (*)] 325 mg PO DAILY 03/09/14 [Last Taken 08/19/18] C/E/Zn/Cu/OM3/DHA/EPA/LUT/ZEAX [Preservision Areds 2 Softgel] 1 each PO BID [Last Taken 08/19/18 08:00] Herbals/Supplements -Info Only 1 ea PO DAILY 09/05/17 [Last Taken 08/19/18] Ipratropium [Atrovent Neb (*)] 0.5 mg IH TID PRN 08/02/18 [Last Taken 1 Week Ago ~08/12/18] Multivitamins [Multivitamin (*)] 1 each PO BID 08/02/18 [Last Taken 08/19/18 09: 00] Albuterol [Proventil Inhaler HFA (*)] 1 - 2 puffs IH Q4HRS PRN 08/19/18 [Last Taken 08/18/18] Fluticasone Propionate [Flonase Allergy Relief] 2 sprays EACHNARE DAILY PRN 11/02 [Last Taken 08/18/18] Furosemide [Lasix 20 MG (*)] 40 mg PO DAILY 08/19/18 [Last Taken 08/19/18] Loratadine [Claritin] 10 mg PO BID PRN 08/19/18 [Last Taken 08/19/18 08:00] Nebivolol HCl [Bystolic 5 mg (*)] 5 mg PO BID 08/19/18 [Last Taken 08/19/18 09: 00] Omeprazole 20 mg PO BID 08/19/18 [Last Taken 08/19/18 09:00] Praluent Pen 1 ea INJ Q14D 08/19/18 [Last Taken 08/06/18] Spironolactone [Aldactone 25 MG (*)] 25 mg PO DAILY 08/19/18 [Last Taken ] predniSONE 40 mg PO DAILY 08/19/18 [Last Taken 08/19/18 08:00] I have personally reviewed and updated: family history, medical history - Past Medical History hypertension, hyperlipidemia Additional medical history: h/o colitis. pulmonary fibrosis - Surgical History Additional surgical history: Lung surgery ~20 years ago - Family History Positive for: CAD - Social History Smoking Status: Former smoker Additional social history: , lives independently with Review of Systems Review of Systems: ROS: 10pt was reviewed & negative except for what was stated in HPI & below Physical Exam Physical Exam: Temp Pulse Resp BP Pulse Ox 36.3 C 55 L 16 154/89 H 96 08/20/18 00:07 08/20/18 00:07 08/20/18 00:07 08/20/18 00:07 08/20/18 00:07 O2 (L/minute) 1 Constitutional: no apparent distress, not in pain Eyes: PERRL, EOMI Ears, Nose, Mouth, Throat: moist mucous membranes, no oral mucosal ulcers Cardiovascular: regular rate and rhythym, systolic murmur Respiratory: no respiratory distress, clear to auscultation Gastrointestinal: normoactive bowel sounds, soft, non-tender abdomen Skin: warm, normal color Musculoskeletal: full muscle strength, no muscle tenderness Neurologic: AAOx3, CN II-XII Intact Psychiatric: interacting appropriately, not anxious Lab Data & Imaging Review 08/19/18 19:40 08/19/18 19:40 WBC 11.34 10^3/uL (3.80-9.50) H 08/19/18 19:40 RBC 4.95 10^6/uL (4.18-5.33) 08/19/18 19:40 Hgb 14.9 g/dL (12.6-16.3) 08/19/18 19:40 Hct 43.3 % (38.0-47.0) 08/19/18 19:40 MCV 87.5 fL (81.5-99.8) 08/19/18 19:40 MCH 30.1 pg (27.9-34.1) 08/19/18 19:40 MCHC 34.4 g/dL (32.4-36.7) 08/19/18 19:40 RDW 16.0 % (11.5-15.2) H 08/19/18 19:40 Plt Count 268 10^3/uL (150-400) 08/19/18 19:40 MPV 8.0 fL (8.7-11.7) L 08/19/18 19:40 Neut % (Auto) 87.6 % (39.3-74.2) H 08/19/18 19:40 Lymph % (Auto) 6.2 % (15.0-45.0) L 08/19/18 19:40 [place] % (Auto) 3.7 % (4.5-13.0) L 08/19/18 19:40 Eos % (Auto) 0.1 % (0.6-7.6) L 08/19/18 19:40 Baso % (Auto) 0.3 % (0.3-1.7) 08/19/18 19:40 Nucleat RBC Rel Count 0.0 % (0.0-0.2) 08/19/18 19:40 Absolute Neuts (auto) 9.94 10^3/uL (1.70-6.50) H 08/19/18 19:40 Absolute Lymphs (auto) 0.70 10^3/uL (1.00-3.00) L 08/19/18 19:40 Absolute Monos (auto) 0.42 10^3/uL (0.30-0.80) 08/19/18 19:40 Absolute Eos (auto) 0.01 10^3/uL (0.03-0.40) L 08/19/18 19:40 Absolute Basos (auto) 0.03 10^3/uL (0.02-0.10) 08/19/18 19:40 Absolute Nucleated RBC 0.00 10^3/uL (0-0.01) 08/19/18 19:40 Immature Gran % 2.1 % (0.0-1.1) H 08/19/18 19:40 Immature Gran # 0.24 10^3/uL (0.00-0.10) H 08/19/18 19:40 Sodium 121 mEq/L (135-145) L 08/19/18 19:40 Potassium 4.5 mEq/L (3.5-5.2) 08/19/18 19:40 Chloride 87 mEq/L (97-110) L 08/19/18 19:40 Carbon Dioxide 27 mEq/l (22-31) 08/19/18 19:40 Anion Gap 7 mEq/L (6-14) 08/19/18 19:40 BUN 23 mg/dL (7-23) 08/19/18 19:40 Creatinine 0.6 mg/dL (0.6-1.0) 08/19/18 19:40 Estimated GFR > 60 08/19/18 19:40 Glucose 129 mg/dL (70-100) H 08/19/18 19:40 Calcium 8.3 mg/dL (8.5-10.4) L 08/19/18 19:40 Total Bilirubin 0.5 mg/dL (0.1-1.4) 08/19/18 19:40 Conjugated Bilirubin 0.2 mg/dL (0.0-0.5) 08/19/18 19:40 Unconjugated Bilirubin 0.3 mg/dL (0.0-1.1) 08/19/18 19:40 AST 32 IU/L (14-46) 08/19/18 19:40 ALT 38 IU/L (9-52) 08/19/18 19:40 Alkaline Phosphatase 67 IU/L (38-126) 01/03/19 19:40 POC Troponin I 0.01 ng/mL (0.00-0.08) 08/19/18 19:44 Total Protein 6.4 g/dL (6.3-8.2) 08/19/18 19:40 Albumin 3.5 g/dL (3.5-5.0) 08/19/18 19:40 Lipase 479 IU/L (23-300) H 08/19/18 19:40 Imaging Review: Imaging Impressions Chest X-Ray 08/19/18 19:48 Impression: Near complete interval resolution of patchy bilateral pulmonary infiltrates. No acute pneumonia identified. Mild central bronchitis. Visualized and Interpreted EKG results: Yes EKG Interpretation: Positive for: normal sinsus rhythm, other (Incomplete RBBB) Assessment & Plan Assessment: 87 yo F w hx of dCHF, pHTN, HTN, and pulmonary fibrosis presents with chest pain and acute on chronic hyponatremia. Plan: 1. Chest pain - Patient experienced episode of severe chest pain while walking. ECG (personally reviewed/interpreted) without signs of acute ischemia; initial troponin negative. HEART score of 5 denoting need for further work-up. - Admit to PCU for observation - Monitor on telemetry, trend cardiac enzymes - Will order Lexiscan stress test with NM noting inability to exercise - ECG, NTG PRN for chest pain 2. 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 - Hold furosemide for now - Repeat BMP in the morning - Will check [place], [place] 3. dCHF - She appears fairly euvolemic on exam; her CXR demonstrates resolution of pulmonary edema. - Holding furosemide as above, consider restarting at lower dose 4. Pulmonary fibrosis - Currently on prednisone 40 mg qD. - Continue home prednisone 5. pHTN - Related to above 6. HTN - Continue home medications Diet - NPO @ MN for nuc stress Code - Full Ppx - LMWH, low dose noting age Dispo - Admit under observation status
[2018-08-20] MEDS ORDERED: PRESERVISION AREDS2 FORMULA EYE VIT 1 EACH PO SCH (08:00)
[2018-08-20] MEDS ORDERED: PANTOPRAZOLE SODIUM 40 MG TAB PO SCH (09:00)
[2018-08-20] MEDS ORDERED: predniSONE 20 MG TAB PO SCH (09:00)
[2018-08-20] MEDS ORDERED: ENOXAPARIN 40 MG/0.4 ML SYR SC SCH (09:00)
[2018-08-20] MEDS ORDERED: Herbals/Supplements -Info Only PO SCH (09:00)
[2018-08-20] MEDS ORDERED: MULTIVITAMINS 1 EACH TAB PO SCH (09:00)
[2018-08-20] MEDS ORDERED: ASPIRIN 325 MG TAB PO SCH (09:00)
[2018-08-20] MEDS: NEBIVOLOL HCL 5 MG TAB PO SCH (09:39)
[2018-08-20] MEDS: LOSARTAN POTASSIUM 50 MG TAB PO SCH (09:40)
[2018-08-20] MEDS ORDERED: NS W/ 20 KCl/L 1,000 ML IV SCH (11:00)
[2018-08-20] MEDS ORDERED: REGADENOSON 0.4 MG/5 ML SYR IVP ONE (12:44)
--- NOTE | 2018-08-20 12:55 | ASMTCMCOM ---
CM Note CM Note Notes: Pt is a 87 y/ female admitted for chest pain, gas and shortness of breath. Pt is current w/ [facility]. Pt will have a stress test and if that is normal pt will most likely d/c home today. CM to follow. Plan: [facility] Date Signed: 08/20/2018 12:55 PM Electronically Signed By:OSMIN Roberto
[2018-08-20 15:08] VITALS: BP 150/76
--- NOTE | 2018-08-20 16:21 | PDIAF ---
- Diagnosis Diagnosis: hyponatremia Code Status: Full Code - Medication Management Discharge Medications: electronically signed and located in the Home Medication List. - Orders Services needed: Home Care, Registered Nurse, Certified Watch Repairer Apprentice, Physical Therapy, Occupational Therapy Home Care Face to Face: I certify that this patient was under my care and that I had the required [id number] encounter meeting the encounter requirements on the discharge day. My findings support the fact that the patient is homebound as defined in Home Care Face to Face Continued: CMS Chapter 7 Medicare Benefits Manual 30.1.1 , The condition of the patient is such that there exists a normal inability to leave home and consequently, leaving home would require a considerable and taxing effort. Isolation Type: None Diet Recommendation: no restrictions on diet Diet Texture: Regular Texture Diet Additional Instructions: Activity: as tolerated f/u: with pcp next week - Follow Up Care Current Providers and Referrals: Latoya Guzman MD [Primary Care Provider] - As per Instructions
--- NOTE | 2018-08-20 16:26 | PDDCSUM ---
Discharge Summary Discharge Summary: 87 yo F w hx of dCHF, pHTN, HTN, and pulmonary fibrosis admitted chest pain and acute on chronic hyponatremia. She was admitted. She had a Lexiscan with NM and this was unremarkable, cardiac w/u was negative. She was no longer experiencing CP. She was found to have a Na of 121 on admission. Diuretics were held and Na was improved to 128. Diuretics have been changed going forward. The Spironolactone was stopped. The Lasix was decreased to 20mg daily. She will f/u with her PCP next week. DDX: 1. Chest pain - Patient experienced episode of severe chest pain while walking. ECG (personally reviewed/interpreted) without signs of acute ischemia; initial troponin negative. HEART score of 5 denoting need for further work-up. 2. 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 3. dCHF 4. Pulmonary fibrosis - Currently on prednisone 40 mg qD. - Continue home prednisone 5. pHTN - Related to above 6. HTN - Continue home medications Exam: NAD AAOX3 RRR CTA B S/NT/ND NO LE EDEMA MEDS: SEE MED REC TOTAL TIME SPENT ON D/C IS 35 MINS
--- NOTE | 2018-08-21 03:19 | CPR ---
DATE OF PROCEDURE: 08/20/2018 PROCEDURE: Lexiscan nuclear stress test. INDICATION: The patient is an 87-year-old female with a history of pulmonary hypertension and heart failure who presented to the hospital with chest pain. PROCEDURE IN DETAIL: Consent was obtained and the patient was placed on continuous telemetry. Her r esting EKG revealed normal sinus rhythm with inverted T-waves in the V1 and V2. The patient was infu sed with Lexiscan and complained of shortness of breath and nausea. She remained in normal sinus rhy thm throughout the study. Her heart rate did increase approximately 30 beats with the infusion. She was given caffeine in the recovery phase with resolution in her symptoms. Her blood pressure at res t was 110/66 and remained stable throughout the procedure. PLAN: Await nuclear images. /[id number]/MODL
--- NOTE | 2018-08-22 08:43 | CPEKG ---
Test Reason : OPEN Blood Pressure : / mmHG Vent. Rate : 052 BPM Atrial Rate : 054 BPM P-R Int : 189 ms QRS Dur : 082 ms QT Int : 416 ms P-R-T Axes : 061 002 035 degrees QTc Int : 387 ms Sinus rhythm Atrial premature complex Left atrial enlargement Low voltage, extremity and precordial leads LAE is more pronounced in current ECG Confirmed by Hai Membreno ([id number]) on 08/22/2018 8:43:13 AM Referred By: Confirmed By:Hai Membreno
--- NOTE | 2018-08-23 15:54 | ASDISCHSUM ---
Discharge Information Plan Status:Home with Home Health Medically Cleared to Leave: Discharge Date:08/20/2018 06:07 PM D/C Disposition: ADT D/C Disposition:Home, Routine, Self-Care Projected Discharge Date:08/20/2018 11:00 AM Transportation at D/C: Discharge Delay Reason: Follow-Up Date:08/20/2018 11:00 AM Discharge Slot: Final Diagnosis: Placement Information Referral Type:*Home Health Care Services Referral ID:[id number] Provider Name:[facility] Address 1:[address] [place] [address] Address 2: City:[place] Selection Factors: State:[place] Patient Contact Information Contact Name:BRENT Relationship: Address:[address] City:[place] Alternate Phone: State/Zip Code:[place] [address] Email: Financial Information Financial Class:Medicare Primary Plan Desc:MEDICARE OUTPATIENT Primary Plan Number:[id number] Secondary Plan Desc:RAIN PPO Secondary Plan Number:[id number] Assessment Information [facility] CM Progress Note CM Note CM Note Notes: Pt is a 87 y/ female admitted for chest pain, gas and shortness of breath. Pt is current w/ [facility]. Pt will have a stress test and if that is normal pt will most likely d/c home today. CM to follow. Plan: [facility] Date Signed: 08/20/2018 12:55 PM Electronically Signed By:OSMIN Roberto Intervention Information Intervention Type:RADHA-Signed Date of Service:08/20/2018 12:02 PM Patient Type:Observation Staff Member:Melinda Mares Hours: Discipline: Severity: Comment:
== END 2018-08-20 18:07 | disposition home or self-care (01) ==
LOC: F2W 21:07 → UNDODISOB 08-20 16:25
PROVIDERS: ADMIT Internal Medicine; ATTEND Family Medicine
DX: E87.1 Hypo-osmolality and hyponatremia (principal); R07.89 Other chest pain; I50.30 Unspecified diastolic (congestive) heart failure; I11.0 Hypertensive heart disease with heart failure; I27.20 Pulmonary hypertension, unspecified; J84.10 Pulmonary fibrosis, unspecified
CPT/HCPCS: 71046; 78452; 93005; 93017; A9500; G0378; J1650; J2785; J7512; 84484-ER

== ENCOUNTER → 2018-09-22 | Outpatient (CLI) | payer OTHER | LOC: FIMAGING 14:17 | PROVIDERS: ATTEND Internal Medicine Pulmonary Disease | DX: J84.9 Interstitial pulmonary disease, unspecified (principal) ==

== ENCOUNTER → 2018-11-29 | Outpatient (CLI) | payer OTHER | LOC: FIMAGING 11:34 | PROVIDERS: ATTEND Internal Medicine Pulmonary Disease | DX: R91.8 Other nonspecific abnormal finding of lung field (principal); M41.85 Other forms of scoliosis, thoracolumbar region; R06.02 Shortness of breath; R06.2 Wheezing ==